=== PATIENT | male | born 1970 | race Caucasian/White ===

== ENCOUNTER 2016-09-23 21:39 | Emergency (ER) | payer OTHER ==
[2016-09-23 21:46] VITALS: BP 123/71; PULSE 89; TEMP 98; BMI 20.3
--- NOTE | 2016-09-23 22:37 | PDOC ---
History of Present Illness - General History Source: Other ([facility] Records) Exam Limitations: Intoxication - History of Present Illness Initial Comments: 09/23/16 22:45 Patient is a 46 year old male with significant past medical history of who presents to the ED from [facility] to be medically cleared and sent back for s/p fall with injury to the right knee. As per [facility] note the patient presented for BHS and was complaining of right knee pain, swelling and tenderness and not being able to bend the knee. Patient is intoxicated and sleeping, therefore HPI is limited. <Fatuma Amor - Last Filed: 09/23/16 22:45> <Christal Parish - Last Filed: 09/24/16 00:44> - General Chief Complaint: Injury Stated Complaint: FALL Time Seen by Provider: 09/23/16 22:07 Past History <Fatuma Amor - Last Filed: 09/23/16 22:45> - Past Medical History Diabetes: Yes - Psycho/Social/Smoking Cessation Hx Suicidal Ideation: No Smoking History: Current every day smoker Have you smoked in the past 12 months: No Number of Cigarettes Smoked Daily: 10 Information on smoking cessation initiated: No Hx Alcohol Use: Yes Drug/Substance Use Hx: No <Christal Parish - Last Filed: 09/24/16 00:44> - Past Medical History Allergies/Adverse Reactions: Allergies Allergy/AdvReac Type Severity Reaction Status Date / Time Penicillins Allergy Verified 09/23/16 21:41 Home Medications: Ambulatory Orders Metformin HCl [Glucophage -] 500 mg PO DAILY 09/23/16 Review of Systems - Review of Systems Able to Perform ROS?: No Comments:: 09/23/16 22:45 Unable to obtain an ROS due to patient being intoxicated. <Fatuma Amor - Last Filed: 09/23/16 22:45> *Physical Exam - Vital Signs Last Vital Signs Temp Pulse Resp BP Pulse Ox 98.0 F 89 14 123/71 95 09/23/16 21:42 09/23/16 21:42 09/23/16 21:42 09/23/16 21:42 09/23/16 21:42 - Physical Exam Comments: 09/23/16 22:46 GENERAL: +Alcohol on breath, somnolent, disheveled, smells terrible. HEENT: Normocephalic, atraumatic. CARDIOVASCULAR: Normal S1, S2. Regular rate and rhythm. PULMONARY: Clear to auscultation bilaterally. ABDOMEN: Soft, non-distended, non-tender. EXTREMITIES: + RT knee swelling, patellar bolatemen SKIN: + subacute abrasion to rt knee healing, NEUROLOGICAL: Limited. <Fatuma Amor - Last Filed: 09/23/16 22:45> - Vital Signs Last Vital Signs Temp Pulse Resp BP Pulse Ox 98.0 F 89 14 123/71 95 09/23/16 21:42 09/23/16 21:42 09/23/16 21:42 09/23/16 21:42 09/23/16 21:42 <Christal Parish - Last Filed: 09/24/16 00:44> ED Treatment Course - LABORATORY CBC & Chemistry Diagram: 09/23/16 23:15 09/23/16 23:15 <Christal Parish - Last Filed: 09/24/16 00:44> Medical Decision Making - Medical Decision Making 09/24/16 00:35 36-year-old intoxicated male was sent over from [facility] to evaluate right knee. He states that he had just fallen on it. However, the abrasion appears to be healing. He does have a small effusion on x-ray. No dislocation. No fracture. No streaking. No evidence of sialitis. Patient is afebrile. White count is only 4 Alcohol levels 198 Patient discharged back to [facility] <Christal Parish - Last Filed: 09/24/16 00:44> *DC/Admit/Observation/Transfer - Attestations Scribe Attestion: 09/23/16 22:50 Documentation prepared by SADE Gonzalez, acting as medical claims assistant for Christal Parish MD. <Fatuma Amor - Last Filed: 09/23/16 22:45> <Christal Parish - Last Filed: 09/24/16 00:44> Diagnosis at time of Disposition: Alcohol intolerance, Swelling of right knee joint Abrasion of right knee Qualifiers: Encounter type: initial encounter Qualified Code(s): S80.211A - Abrasion, right knee, initial encounter - Discharge Dispostion Disposition: I.P. ALCOHOL/SUBS ABUSE REHAB Condition at time of disposition: Stable - Patient Instructions Printed Discharge Instructions: DI for Alcohol Abuse, DI for Knee Pain, DI for Knee Effusion
[2016-09-23 23:26] LABS: BASOPHIL 1.6 % (0-2.0); EOSINOPHIL 2.1 % (0-4.5); MCH 30.4 pg (25.7-33.7); MCHC 33.3 g/dl (32.0-35.9); MEAN CELL VOLUME 91.2 fl (80-96); NEUTROPHILS 55.3 % (42.8-82.8); PLATELET COUNT 242 K/MM3 (134-434); RDW 16.1 % (11.9-15.9); WHITE BLOOD COUNT 4.8 K/mm3 (4.0-10.0)
[2016-09-23 23:55] LABS: ALBUMIN 3.3 g/dl (3.4-5.0); ANION GAP 11 (8-16); BILIRUBIN,TOTAL 0.3 mg/dL (0.2-1.0); CALCIUM 7.9 mg/dL (8.5-10.1); CO2 28 mmol/L (21-32); CREATININE 0.8 mg/dL (0.7-1.3); GLUCOSE,RANDOM 107 mg/dL (74-106); SGOT/AST 23 U/L (15-37); SGPT/ALT 22 U/L (12-78); TOT PROT 6.4 g/dl (6.4-8.2)
[2016-09-23 23:57] LABS: ALK PHOS 66 U/L (45-117)
== END 2016-09-24 01:01 | disposition other institution (70) ==
LOC: JER 21:39
DX: M25.461 Effusion, right knee (principal); S80.211A Abrasion, right knee, initial encounter; F10.120 Alcohol abuse with intoxication, uncomplicated; Y90.6 Blood alcohol level of 120-199 mg/100 ml; W19.XXXA Unspecified fall, initial encounter; Y93.89 Activity, other specified; Y92.89 Other specified places as the place of occurrence of the external cause; Y99.9 Unspecified external cause status
CPT/HCPCS: 36415; 73564-TC-RT; 80053; 80307; 85025; 99281-25

== ENCOUNTER 2016-09-24 01:43 | Inpatient (IN) | payer OTHER ==
--- NOTE | 2016-09-24 02:00 | HP ---
CIWA Score - CIWA Score Nausea/Vomitin-Mild Nausea/No Vomiting Muscle Tremors: 5 Anxiety: 4-Mod. Anxious/Guarded Agitation: 4-Moderately Restless Paroxysmal Sweats: 2 Orientation: 1-Uncertain about Date Tacttile Disturbances: 0-None Auditory Disturbances: 0-None Visual Disturbances: 0-None Headache: 0-None Present CIWA-Ar Total Score: 17 Admission ROS BHS - HPI Chief Complaint: WITHDRAWAL SX'S Allergies/Adverse Reactions: Allergies Allergy/AdvReac Type Severity Reaction Status Date / Time Penicillins Allergy Verified 09/24/16 01:55 History of Present Illness: 46 Y.O. MALE WITH EXTENSIVE H/O ALCOHOLISM ADMITTED FOR DETOX. CLIENT PRESENTED YESTERDAY FOR ADMISSION BUT WAS SENT TO [facility] FOR MEDICAL CLEARANCE DUE TO R KNEE PAIN R/T A FALL EARLIER IN THE DAY. XRAY DONE NO FX, R KNEE EFFUSION NOTED LEG BRACE PLACE, MEDICALLY CLEARED AND RETURNS NOW FOR ADMISSION. REPORTS LONGEST SOBRIETY WAS 6 YEARS AGO. DENIES ANY RECENT DETOX TXMENT. Exam Limitations: Physical Impairment (R KNEE PAIN.) - Ebola screening Have you traveled outside of the country in the last 21 days: No Have you had contact with anyone from an Ebola affected area: No Have you been sick,other than usual withdrawal symptoms: No Do you have a fever: No - Review of Systems Constitutional: Chills, Loss of Appetite, Malaise, Night Sweats EENT: reports: No Symptoms Reported Respiratory: reports: No Symptoms reported Cardiac: reports: No Symptoms Reported GI: reports: Poor Appetite, Poor Fluid Intake : reports: No Symptoms Reported Musculoskeletal: reports: Joint Pain (R KNEE) Integumentary: reports: Other (R KNEE ABRASION) Neuro: reports: Tremors (R/T ALCOHOL) Endocrine: reports: Other (H/O DM) Psychiatric: reports: No Sypmtoms Reported Other Systems: Reviewed and Negative Patient History - Patient Medical History Hx Anemia: No Hx Asthma: No Hx Chronic Obstructive Pulmonary Disease (COPD): No Hx Cancer: No Hx Cardiac Disorders: No Hx Congestive Heart Failure: No Hx Hypertension: No Hx Hypercholesterolemia: No Hx Pacemaker: No HX Cerebrovascular Accident: No Hx Seizures: No Hx Dementia: No Hx Diabetes: Yes (ON METFORMIN) Hx Gastrointestinal Disorders: No Hx Liver Disease: No Hx Genitourinary Disorders: No Hx Sexually Transmitted Disorders: No Hx Renal Disease (ESRD): No Hx Thyroid Disease: No Hx Human Immunodeficiency Virus (HIV): No Hx Hepatitis C: Yes (TX'ED) Hx Suicide Attempt: No Hx Bipolar Disorder: No Hx Schizophrenia: No Other Medical History: DENIES - Patient Surgical History Past Surgical History: Yes Other Surgical History: ABD HERNIA REPAIR Anesthesia Reaction: No - PPD History Previous Implant?: Yes Documented Results: Negative w/o proof Implanted On Prior R Admission?: No PPD to be Administered?: Yes - Smoking Cessation Smoking history: Current every day smoker Have you smoked in the past 12 months: No Aproximately how many cigarettes per day: 2 Hx Chewing Tobacco Use: No Initiated information on smoking cessation: Yes 'Breaking Loose' booklet given: 09/24/16 - Substance & Tx. History Hx Alcohol Use: Yes Hx Substance Use: No Substance Use Type: Alcohol Hx Substance Use Treatment: Yes ([facility]) - Substances Abused VODKA Route: Oral Frequency: Daily Amount used: 2PINTS/ 6-PACK OF BEER Age of first use: 16 Date of Last Use: 09/23/16 Family Disease History - Family Disease History Family Disease History: Other: Father (SUICIDE/ ETOH DEP) Admission Physical Exam [facility] - Physical General Appearance: Yes: Disheveled, Intoxicated, Tremorous, Other (MALODUROUS) HEENTM: Yes: EOMI, Hearing grossly Normal, Normocephalic, TYLER, Pharynx Normal Respiratory: Yes: Chest Non-Tender, Lungs Clear, Normal Breath Sounds, No Respiratory Distress, No Accessory Muscle Use Neck: Yes: No masses,lesions,Nodules, Supple, Trachea in good position Breast: Yes: Breast Exam Deferred Cardiology: Yes: Regular Rhythm, Regular Rate, S1, S2 Abdominal: Yes: Normal Bowel Sounds, Non Tender, Flat, Soft Genitourinary: Yes: Within Normal Limits Back: Yes: Normal Inspection Musculoskeletal: Yes: Joint Stiffness, Other (LROM TO R KNEE 2/2 PAIN) Extremities: Yes: Normal Capillary Refill, Normal Range of Motion (EXCEPT R KNEE ), Non-Tender, Tremors Neurological: Yes: Alert, Motor Strength 5/5 Integumentary: Yes: Other (R KNEE ABRASION/ SWOLLEN RED AND WARM TO TOUCH, WITH BROWNISH TISSUE AROUN BORDERS.) Lymphatic: Yes: Within Normal Limits - Diagnostic (1) Diabetes Current Visit: Yes Status: Acute (2) Knee effusion, right Current Visit: Yes Status: Acute (3) Alcohol dependence with uncomplicated withdrawal Current Visit: Yes Status: Acute (4) Nicotine dependence Current Visit: Yes Status: Acute Cleared for Admission [facility] - Detox or Rehab [facility] Level of Care: Medically Managed Detox Regimen/Protocol: Librium BHS Breath Alcohol Content Breath Alcohol Content: 0.102 Vital Signs - Vital Signs Vital Signs Refused: No Temperature: 97.3 F Temperature Source: Oral Pulse Rate: 78 Respiratory Rate: 20 Blood Pressure: 115/69 BP Location: Left Arm Blood Pressure Position: Sitting - Height Height: 5 ft 8 in - Weight Weight: 67.132 kg Weight Measurement Method: Standing Scale Body Mass Index (BMI): 22.5 - Bowel Function Bowel Movement: No Urine Drug Screen - Test Device Lot Number: [id number] Expiration Date: 04/30/18 - Control Is Test Valid: Yes - Results Drug Screen Negative: Yes
[2016-09-24 02:06] VITALS: BMI 22.5
[2016-09-24] MEDS ORDERED: LOPERAMIDE HCL 2 MG CAPSULE PO PRN (02:13)
[2016-09-24] MEDS ORDERED: NICOTINE POLACRILEX 2 MG GUM BC PRN (02:13)
[2016-09-24] MEDS ORDERED: IBUPROFEN 400 MG TABLET (FP) PO PRN (02:13)
[2016-09-24] MEDS ORDERED: ACETAMINOPHEN 325 MG TABLET (FP) PO PRN (02:13)
[2016-09-24] MEDS ORDERED: MAGNESIUM HYDROX 2400MG/30ML ORAL SUSPENSION 30 ML CUP PO PRN (02:13)
[2016-09-24] MEDS ORDERED: chlordiazePOXIDE HCL 25 MG CAPSULE PO PRN (02:13)
[2016-09-24] MEDS ORDERED: diphenhydrAMINE HCL 50 MG CAPSULE PO PRN (02:13)
[2016-09-24] MEDS ORDERED: chlordiazePOXIDE HCL 25 MG CAPSULE PO ONE (02:13)
[2016-09-24] MEDS ORDERED: hydrOXYzine PAMOATE 50 MG CAPSULE (FP) PO PRN (02:13)
[2016-09-24] MEDS ORDERED: guaiFENesin/D-METHORPHAN HB 10 ML UNIT-DOSE CUPS PO PRN (02:13)
[2016-09-24] MEDS ORDERED: P-EPHED 60MG/TRIPROLIDI 2.5MG TABLET PO PRN (02:13)
[2016-09-24] MEDS ORDERED: MENTHOL/PHENOL 1 EACH UD MM PRN (02:13)
[2016-09-24] MEDS ORDERED: MAG HYDROX/AL HYDROX/SIMETH 30 ML UNIT-DOSE CUP PO PRN (02:13)
[2016-09-24] MEDS ORDERED: MAGNESIUM CITRATE 300 ML BOTTLE PO PRN (02:13)
--- NOTE | 2016-09-24 02:28 | PN ---
BHS Progress Note Note: PT STARTED ON LEVOFLOXACIN PO FOR R KNEE ABRASION WITH INFLAMMATION/ POSSIBLE INFECTION
[2016-09-24] MEDS: chlordiazePOXIDE HCL 25 MG CAPSULE PO SCH ×4 (06:08→22:30)
[2016-09-24] MEDS: INSULIN SLIDING SCALE (NOVOLOG) 1 VIAL SQ SCH ×2 (06:10→17:14)
[2016-09-24] MEDS ORDERED: LEVOFLOXACIN 500 MG TABLET (FP) ONE (06:33)
[2016-09-24] MEDS ORDERED: LEVOFLOXACIN 250 MG TABLET (FP) ONE (06:34)
[2016-09-24] MEDS: LEVOFLOXACIN 500 MG, LEVOFLOXACIN 250 MG PO SCH (06:53)
[2016-09-24] MEDS: LEVOFLOXACIN 750 MG TABLET PO SCH (06:53)
[2016-09-24] MEDS: metFORMIN HCL 500 MG TABLET (FP) PO SCH (07:48)
[2016-09-24] MEDS ORDERED: BACITRACIN 30 GM TUBE TOPICAL OINTMENT TP SCH (10:00)
--- NOTE | 2016-09-24 10:02 | PN ---
[facility] CIWA - CIWA Score Nausea/Vomitin-No Nausea/No Vomiting Muscle Tremors: 4-Moderate,w/Arms Extend Anxiety: 4-Mod. Anxious/Guarded Agitation: 4-Moderately Restless Paroxysmal Sweats: 1-Minimal Palms Moist Orientation: 0-Oriented Tacttile Disturbances: 3-Moderate Itch/Numb/Burn Auditory Disturbances: 0-None Visual Disturbances: 0-None Headache: 0-None Present CIWA-Ar Total Score: 16 BHS Progress Note (SOAP) Subjective: ANXIETY,SWEATS,CHILLS, INTERMITTENT SLEEP. Objective: 09/24/16 10:04 Laboratory Last Values WBC 5.5 K/mm3 (4.0-10.0) 09/24/16 07:00 RBC 4.41 M/mm3 (4.00-5.60) 09/24/16 07:00 Hgb 13.7 GM/dL (11.7-16.9) 09/24/16 07:00 Hct 40.6 % (35.4-49) 09/24/16 07:00 MCV 92.0 fl (80-96) 09/24/16 07:00 MCHC 33.8 g/dl (32.0-35.9) 09/24/16 07:00 RDW 15.7 % (11.9-15.9) 09/24/16 07:00 Plt Count 190 K/MM3 (134-434) D 09/24/16 07:00 MPV 9.3 fl (7.5-11.1) D 09/24/16 07:00 POC Glucometer 85 UNITS (()) 09/24/16 06:07 Vital Signs Temperature 97.5 F L 09/24/16 09:43 Pulse Rate 95 H 09/24/16 09:43 Respiratory Rate 20 09/24/16 09:43 Blood Pressure 124/81 09/24/16 09:43 O2 Sat by Pulse Oximetry (%) Assessment: 09/24/16 10:04 WITHDRAWAL SX Plan: CONTINUE DETOX
[2016-09-24 10:03] LABS: MCHC 33.8 g/dl (32.0-35.9); MEAN PLT VOLUME 9.3 fl (7.5-11.1); PLATELET COUNT 190 K/MM3 (134-434); RDW 15.7 % (11.9-15.9); WHITE BLOOD COUNT 5.5 K/mm3 (4.0-10.0)
[2016-09-24] MEDS: PRENATAL VITAMINS W/ FOLIC ACID TABLET (FP) PO SCH (10:35)
[2016-09-24] MEDS: NICOTINE 14 MG/24 HOURS TOPICAL PATCH TD SCH (10:36)
[2016-09-24] MEDS: BACITRACIN 30 GM TUBE TOPICAL OINTMENT TP SCH (10:37)
[2016-09-24 10:50] LABS: ALBUMIN 3.1 g/dl (3.4-5.0); ALK PHOS 66 U/L (45-117); ANION GAP 9 (8-16); BILIRUBIN,TOTAL 0.6 mg/dL (0.2-1.0); CALCIUM 7.4 mg/dL (8.5-10.1); CO2 27 mmol/L (21-32); CREATININE 0.6 mg/dL (0.7-1.3); GLUCOSE,RANDOM 83 mg/dL (74-106); SGOT/AST 21 U/L (15-37); SGPT/ALT 21 U/L (12-78); TOT PROT 6.1 g/dl (6.4-8.2)
--- NOTE | 2016-09-24 11:00 | EKG ---
Test Reason : Blood Pressure : / mmHG Vent. Rate : 082 BPM Atrial Rate : 082 BPM P-R Int : 132 ms QRS Dur : 090 ms QT Int : 386 ms P-R-T Axes : 078 083 073 degrees QTc Int : 450 ms NORMAL SINUS RHYTHM MODERATE VOLTAGE CRITERIA FOR LVH, MAY BE NORMAL VARIANT BORDERLINE ECG NO PREVIOUS ECGS AVAILABLE Confirmed by DANYEL BEAUCHAMP MD ([id number]) on 09/24/2016 11:00:23 AM Referred By: Confirmed By:DANYEL BEAUCHAMP MD
--- NOTE | 2016-09-24 14:37 | CONSULT ---
[facility] Psychiatric Consult - Data Date of interview: 09/24/16 Admission source: [facility] Identifying data: First admission to [facility] for this 46 y/o male seeking detox treatment on for alcohol dependence.Patient is single without children,homeless,unemployed and supported on food stamps. Substance Abuse History: - Smoking Cessation. Smoking history: Current every day smoker. Have you smoked in the past 12 months: No. Aproximately how many cigarettes per day: 2. Hx Chewing Tobacco Use: No. Initiated information on smoking cessation: Yes. 'Breaking Loose' booklet given: 09/24/16. - Substance & Tx. History. Hx Alcohol Use: Yes. Hx Substance Use: No. Substance Use Type : Alcohol. Hx Substance Use Treatment: Yes ([facility]). - Substances Abused. VODKA. Route: Oral. Frequency: Daily. Amount used: 2PINTS/ 6-PACK OF BEER. Age of first use: 16. Date of Last Use: 09/23/16. Confirmed by patient. Medical History: Remarkable for hepatitis C,diabetes mellitus and abdominal herniorraphy.Noted current right leg brace and report of knee effusion (treated at [facility] prior to this admission to [facility]).It appears that the patient had an accidental [place] (self-report). Psychiatric History: Patient denies. Physical/Sexual Abuse/Trauma History: Patient denies. Additional Comment: Drug Screen Negative: Yes.Noted. Mental Status Exam - Mental Status Exam Alert and Oriented to: Time, Place, Person Cognitive Function: Good Patient Appearance: Disheveled Mood: Withdrawn, Anxious, Apprehensive Affect: Constricted Patient Behavior: Fatigued, Appropriate, Cooperative Speech Pattern: Clear Voice Loudness: Normal Thought Process: Goal Oriented Thought Disorder: Not Present Hallucinations: Denies Suicidal Ideation: Denies Homicidal Ideation: Denies Insight/Judgement: Poor Sleep: Fair Appetite: Good Muscle strength/Tone: Normal Gait/Station: Normal Psychiatric Findings - Problem List (Reva 1, 2,3) (1) Alcohol dependence with uncomplicated withdrawal Current Visit: Yes Status: Acute (2) Nicotine dependence Current Visit: Yes Status: Acute (3) Knee effusion, right Current Visit: Yes Status: Acute (4) Swelling of right knee joint Current Visit: No Status: Acute (5) Diabetes Current Visit: Yes Status: Chronic - Initial Treatment Plan Initial Treatment Plan: Psychoeducation.Detoxification.Observation.Fall precautions.
[2016-09-24] MEDS ORDERED: THIAMINE HCL 100 MG TABLET (FP) PO SCH (22:00)
[2016-09-25] MEDS ORDERED: LEVOFLOXACIN 500 MG TABLET (FP) ONE (05:33)
[2016-09-25] MEDS ORDERED: LEVOFLOXACIN 250 MG TABLET (FP) ONE (05:33)
[2016-09-25] MEDS: metFORMIN HCL 500 MG TABLET (FP) PO SCH (06:23)
[2016-09-25] MEDS: LEVOFLOXACIN 500 MG, LEVOFLOXACIN 250 MG PO SCH (06:23)
[2016-09-25] MEDS: chlordiazePOXIDE HCL 25 MG CAPSULE PO SCH ×2 (06:23→10:44)
[2016-09-25] MEDS: LEVOFLOXACIN 750 MG TABLET PO SCH (07:24)
[2016-09-25] MEDS: INSULIN SLIDING SCALE (NOVOLOG) 1 VIAL SQ SCH (07:41)
--- NOTE | 2016-09-25 08:57 | PN ---
[facility] CIWA - CIWA Score Nausea/Vomitin-No Nausea/No Vomiting Muscle Tremors: 4-Moderate,w/Arms Extend Anxiety: 4-Mod. Anxious/Guarded Agitation: 4-Moderately Restless Paroxysmal Sweats: 1-Minimal Palms Moist Orientation: 0-Oriented Tacttile Disturbances: 3-Moderate Itch/Numb/Burn Auditory Disturbances: 0-None Visual Disturbances: 0-None Headache: 0-None Present CIWA-Ar Total Score: 16 BHS Progress Note (SOAP) Subjective: ANXIETY,TREMORS,SWEATS. Objective: 09/25/16 08:57 Vital Signs Temperature 97.0 F L 09/25/16 06:48 Pulse Rate 78 09/25/16 06:48 Respiratory Rate 18 09/25/16 06:48 Blood Pressure 124/88 09/25/16 06:48 O2 Sat by Pulse Oximetry (%) Laboratory Last Values WBC 5.5 K/mm3 (4.0-10.0) 09/24/16 07:00 RBC 4.41 M/mm3 (4.00-5.60) 09/24/16 07:00 Hgb 13.7 GM/dL (11.7-16.9) 09/24/16 07:00 Hct 40.6 % (35.4-49) 09/24/16 07:00 MCV 92.0 fl (80-96) 09/24/16 07:00 MCHC 33.8 g/dl (32.0-35.9) 09/24/16 07:00 RDW 15.7 % (11.9-15.9) 09/24/16 07:00 Plt Count 190 K/MM3 (134-434) D 09/24/16 07:00 MPV 9.3 fl (7.5-11.1) D 09/24/16 07:00 Sodium 139 mmol/L (136-145) 09/24/16 07:00 Potassium 4.1 mmol/L (3.5-5.1) 09/24/16 07:00 Chloride 103 mmol/L (98-107) 09/24/16 07:00 Carbon Dioxide 27 mmol/L (21-32) 09/24/16 07:00 Anion Gap 9 (8-16) 09/24/16 07:00 BUN 8 mg/dL (7-18) 09/24/16 07:00 Creatinine 0.6 mg/dL (0.7-1.3) L D 09/24/16 07:00 Creat Clearance w eGFR > 60 (>60) 09/24/16 07:00 POC Glucometer 99 UNITS (()) 09/25/16 06:26 Random Glucose 83 mg/dL (74-106) D 09/24/16 07:00 Calcium 7.4 mg/dL (8.5-10.1) L 09/24/16 07:00 Total Bilirubin 0.6 mg/dL (0.2-1.0) D 09/24/16 07:00 AST 21 U/L (15-37) 09/24/16 07:00 ALT 21 U/L (12-78) 09/24/16 07:00 Alkaline Phosphatase 66 U/L (45-117) 09/24/16 07:00 Total Protein 6.1 g/dl (6.4-8.2) L 09/24/16 07:00 Albumin 3.1 g/dl (3.4-5.0) L 09/24/16 07:00 RPR Titer Nonreactive (NONREACTIVE) 09/24/16 07:00 Assessment: 09/25/16 08:57 WITHDRAWAL SX Plan: CONTINUE DETOX
[2016-09-25] MEDS ORDERED: IBUPROFEN 600 MG TABLET (FP) PO PRN (09:20)
[2016-09-25] MEDS: PRENATAL VITAMINS W/ FOLIC ACID TABLET (FP) PO SCH (10:44)
[2016-09-25] MEDS: NICOTINE 14 MG/24 HOURS TOPICAL PATCH TD SCH (10:44)
[2016-09-25] MEDS: BACITRACIN 30 GM TUBE TOPICAL OINTMENT TP SCH (10:45)
[2016-09-25 14:26] VITALS: BP 107/75; PULSE 75; TEMP 96.4
--- NOTE | 2016-09-25 15:15 | DS ---
[facility] Detox Discharge Summary Admission Date: 09/24/16 Discharge Date: 09/25/16 - History Present History: Alcohol Dependence Pertinent Past History: TYPE II DM - Physical Exam Results Vital Signs: Vital Signs Temperature 96.4 F L 09/25/16 14:25 Pulse Rate 75 09/25/16 14:25 Respiratory Rate 18 09/25/16 14:25 Blood Pressure 107/75 09/25/16 14:25 O2 Sat by Pulse Oximetry (%) Pertinent Admission Physical Exam Findings: WITHDRAWAL SX. Laboratory Last Values WBC 5.5 K/mm3 (4.0-10.0) 09/24/16 07:00 RBC 4.41 M/mm3 (4.00-5.60) 09/24/16 07:00 Hgb 13.7 GM/dL (11.7-16.9) 09/24/16 07:00 Hct 40.6 % (35.4-49) 09/24/16 07:00 MCV 92.0 fl (80-96) 09/24/16 07:00 MCHC 33.8 g/dl (32.0-35.9) 09/24/16 07:00 RDW 15.7 % (11.9-15.9) 09/24/16 07:00 Plt Count 190 K/MM3 (134-434) D 09/24/16 07:00 MPV 9.3 fl (7.5-11.1) D 09/24/16 07:00 Sodium 139 mmol/L (136-145) 09/24/16 07:00 Potassium 4.1 mmol/L (3.5-5.1) 09/24/16 07:00 Chloride 103 mmol/L (98-107) 09/24/16 07:00 Carbon Dioxide 27 mmol/L (21-32) 09/24/16 07:00 Anion Gap 9 (8-16) 09/24/16 07:00 BUN 8 mg/dL (7-18) 09/24/16 07:00 Creatinine 0.6 mg/dL (0.7-1.3) L D 09/24/16 07:00 Creat Clearance w eGFR > 60 (>60) 09/24/16 07:00 POC Glucometer 99 UNITS (()) 09/25/16 06:26 Random Glucose 83 mg/dL (74-106) D 09/24/16 07:00 Calcium 7.4 mg/dL (8.5-10.1) L 09/24/16 07:00 Total Bilirubin 0.6 mg/dL (0.2-1.0) D 09/24/16 07:00 AST 21 U/L (15-37) 09/24/16 07:00 ALT 21 U/L (12-78) 09/24/16 07:00 Alkaline Phosphatase 66 U/L (45-117) 09/24/16 07:00 Total Protein 6.1 g/dl (6.4-8.2) L 09/24/16 07:00 Albumin 3.1 g/dl (3.4-5.0) L 09/24/16 07:00 RPR Titer Nonreactive (NONREACTIVE) 09/24/16 07:00 LABS NOTED - Medication Discharge Medications: Ambulatory Orders Metformin HCl [Glucophage -] 500 mg PO DAILY 09/23/16 - Diagnosis (1) Alcohol dependence with uncomplicated withdrawal Current Visit: Yes Status: Acute (2) Knee effusion, right Current Visit: Yes Status: Acute (3) Nicotine dependence Current Visit: Yes Status: Acute Qualifiers: Nicotine product type: cigarettes Substance use status: uncomplicated Qualified Code(s): F17.210 - Nicotine dependence, cigarettes, uncomplicated (4) Abrasion, right knee, initial encounter Current Visit: Yes Status: Acute Qualifiers: Encounter type: initial encounter Qualified Code(s): S80.211A - Abrasion, right knee, initial encounter (5) Type II diabetes mellitus Current Visit: Yes Status: Acute Qualifiers: Diabetes mellitus complication status: without complication Diabetes mellitus vermin exterminator insulin use: without half-way use Qualified Code(s): E11.9 - Type 2 diabetes mellitus without complications - AMA Did Patient Leave Against Medical Advice: Yes
[2016-09-26] MEDS ORDERED: chlordiazePOXIDE 5 MG CAPSULE PO SCH (05:00)
[2016-09-27] MEDS ORDERED: chlordiazePOXIDE HCL 10 MG CAPSULE PO SCH (05:00)
== END 2016-09-25 14:49 | disposition left against medical advice (07) | DRG 770 ==
LOC: YASAS 01:43 → Y3N 01:47
PROVIDERS: ADMIT Internal Medicine; ATTEND Internal Medicine
PROC: HZ2ZZZZ Detoxification Services for Substance Abuse Treatment (ICD-10-PCS; principal; 2016-09-24)
DX: F10.230 Alcohol dependence with withdrawal, uncomplicated (principal); F17.210 Nicotine dependence, cigarettes, uncomplicated; E11.9 Type 2 diabetes mellitus without complications; S80.211D Abrasion, right knee, subsequent encounter; M25.461 Effusion, right knee; W19.XXXD Unspecified fall, subsequent encounter
CPT/HCPCS: 36415; 80053; 85027; 86593; 93005; 93010

== ENCOUNTER 2016-10-30 16:31 | Inpatient (IN) | payer OTHER ==
--- NOTE | 2016-10-30 19:30 | HP ---
CIWA Score - CIWA Score Nausea/Vomitin-No Nausea/No Vomiting Muscle Tremors: 5 Anxiety: 4-Mod. Anxious/Guarded Agitation: 4-Moderately Restless Paroxysmal Sweats: 1-Minimal Palms Moist Orientation: 3-Disoriented Date>2 days Tacttile Disturbances: 0-None Auditory Disturbances: 0-None Visual Disturbances: 0-None Headache: 0-None Present CIWA-Ar Total Score: 17 Admission ROS [facility] - HPI Chief Complaint: WITHDRAWAL SX Allergies/Adverse Reactions: Allergies Allergy/AdvReac Type Severity Reaction Status Date / Time Penicillins Allergy Verified 10/30/16 18:41 History of Present Illness: 46 YEARS OLD MALE WITH LONG HISTORY OF ALCOHOL DEPENDENCE, HAS HYPERTENSION DIABETES II HEPATITIS C AND ANXIETY IS ADMITTED TO DETOX Exam Limitations: No Limitations - Ebola screening Have you traveled outside of the country in the last 21 days: No Have you had contact with anyone from an Ebola affected area: No Have you been sick,other than usual withdrawal symptoms: No Do you have a fever: No - Review of Systems Constitutional: Chills, Loss of Appetite, Changes in sleep, Unexplained wgt Loss EENT: reports: No Symptoms Reported Respiratory: reports: No Symptoms reported Cardiac: reports: No Symptoms Reported GI: reports: Nausea, Poor Appetite, Poor Fluid Intake, Abdominal cramping : reports: No Symptoms Reported Musculoskeletal: reports: No Symptoms Reported Integumentary: reports: No Symptoms Reported Neuro: reports: Tremors Endocrine: reports: No Symptoms Reported Hematology: reports: No Symptoms Reported Psychiatric: reports: Judgement Intact, Depressed Other Systems: Reviewed and Negative Patient History - Patient Medical History Hx Anemia: No Hx Asthma: No Hx Chronic Obstructive Pulmonary Disease (COPD): No Hx Cancer: No Hx Cardiac Disorders: No Hx Congestive Heart Failure: No Hx Hypertension: Yes Hx Hypercholesterolemia: No Hx Pacemaker: No HX Cerebrovascular Accident: No Hx Seizures: No Hx Dementia: No Hx Diabetes: Yes Hx Gastrointestinal Disorders: No Hx Liver Disease: No Hx Genitourinary Disorders: No Hx Sexually Transmitted Disorders: No Hx Renal Disease (ESRD): No Hx Thyroid Disease: No Hx Human Immunodeficiency Virus (HIV): No Hx Hepatitis C: Yes (TX'ED) Hx Depression: Yes Hx Suicide Attempt: No Hx Bipolar Disorder: No Hx Schizophrenia: No - Patient Surgical History Past Surgical History: Yes Hx Neurologic Surgery: No Hx Cataract Extraction: Yes (2010) Hx Cardiac Surgery: No Hx Lung Surgery: No Hx Breast Surgery: No Hx Breast Biopsy: No Hx Abdominal Surgery: No Hx Appendectomy: No Hx Cholecystectomy: No Hx Genitourinary Surgery: No Hx Orthopedic Surgery: No Other Surgical History: ABD HERNIA REPAIR Anesthesia Reaction: No - PPD History Previous Implant?: Yes Documented Results: Negative w/o proof Implanted On Prior [facility] Admission?: Yes Date: 09/27/16 PPD to be Administered?: Yes - Smoking Cessation Smoking history: Current some day smoker Have you smoked in the past 12 months: Yes Aproximately how many cigarettes per day: 2 Cigars Per Day: 0 Hx Chewing Tobacco Use: No Initiated information on smoking cessation: Yes 'Breaking Loose' booklet given: 10/30/16 - Substance & Tx. History Hx Alcohol Use: Yes Hx Substance Use: No Substance Use Type: Alcohol Hx Substance Use Treatment: Yes - Substances Abused Alcohol Route: Oral Frequency: Daily Amount used: 4 pints Vodka Age of first use: 21 Date of Last Use: 10/30/16 Family Disease History - Family Disease History Family Disease History: Other: Father (SUICIDE/ ETOH DEP) Admission Physical Exam S - Vital Signs Vital Signs: Vital Signs - 24 hr 10/30/16 18:02 Pulse Rate 99 H Respiratory 20 Rate Blood Pressure 150/69 - Physical General Appearance: Yes: Appropriately Dressed, Moderate Distress, Alcohol on Breath, Thin, Tremorous, Irritable, Sweating, Anxious HEENTM: Yes: Hearing grossly Normal, Normal ENT Inspection, Normocephalic, Normal Voice Respiratory: Yes: Chest Non-Tender, Lungs Clear, Normal Breath Sounds, No Respiratory Distress, No Accessory Muscle Use Neck: Yes: Supple, Trachea in good position Breast: Yes: Breasts Symetrical Cardiology: Yes: Regular Rhythm, S1, S2, Tachycardia Abdominal: Yes: Non Tender, Soft Genitourinary: Yes: Within Normal Limits Back: Yes: Normal Inspection Musculoskeletal: Yes: Gait Steady, Muscle Pain (right leg), Muscle weakness ( right leg) Extremities: Yes: Non-Tender, Tremors Neurological: Yes: Within Normal Limits, Alert, Normal Response, Depressed Affect Integumentary: Yes: Warm, Moist Lymphatic: Yes: Within Normal Limits - Diagnostic (1) Alcohol dependence with uncomplicated withdrawal Current Visit: Yes Status: Acute (2) Type II diabetes mellitus Current Visit: Yes Status: Acute Qualifiers: Diabetes mellitus complication status: without complication Diabetes mellitus ad terminal makeup operator insulin use: without ad terminal makeup operator use Qualified Code(s): E11.9 - Type 2 diabetes mellitus without complications (3) Hypertension Current Visit: Yes Status: Acute Qualifiers: Hypertension type: essential hypertension Qualified Code(s): I10 - Essential (primary) hypertension (4) Hepatitis C antibody test positive Current Visit: Yes Status: Chronic (5) Weight loss Current Visit: Yes Status: Acute (6) Weakness of right leg Current Visit: Yes Status: Chronic Comment: cane Cleared for Admission S - Detox or Rehab [facility] Level of Care: Medically Managed Detox Regimen/Protocol: Librium [facility] Breath Alcohol Content Breath Alcohol Content: 0.232 Vital Signs - Vital Signs Vital Signs Refused: No Temperature: 98 F Temperature Source: Oral Pulse Rate: 99 Respiratory Rate: 20 Blood Pressure: 150/69 BP Location: Left Arm Blood Pressure Position: Sitting - Height Height: 5 ft 8 in - Weight Weight: 148 lb Weight Measurement Method: Standing Scale Body Mass Index (BMI): 22.5 - Bowel Function Bowel Movement: Yes Urine Drug Screen - Control Is Test Valid: Yes - Results Drug Screen Negative: No Urine Drug Screen Results: BZO-Benzodiazepines
[2016-10-30 19:41] VITALS: BMI 22.5
[2016-10-30] MEDS ORDERED: MAGNESIUM HYDROX 2400MG/30ML ORAL SUSPENSION 30 ML CUP PO PRN (20:12)
[2016-10-30] MEDS ORDERED: ACETAMINOPHEN 325 MG TABLET (FP) PO PRN (20:12)
[2016-10-30] MEDS ORDERED: IBUPROFEN 400 MG TABLET (FP) PO PRN (20:12)
[2016-10-30] MEDS ORDERED: MAG HYDROX/AL HYDROX/SIMETH 30 ML UNIT-DOSE CUP PO PRN (20:12)
[2016-10-30] MEDS ORDERED: hydrOXYzine PAMOATE 50 MG CAPSULE (FP) PO PRN (20:12)
[2016-10-30] MEDS ORDERED: LOPERAMIDE HCL 2 MG CAPSULE PO PRN (20:12)
[2016-10-30] MEDS ORDERED: MAGNESIUM CITRATE 300 ML BOTTLE PO PRN (20:12)
[2016-10-30] MEDS ORDERED: chlordiazePOXIDE HCL 25 MG CAPSULE PO ONE (20:12)
[2016-10-30] MEDS ORDERED: P-EPHED 60MG/TRIPROLIDI 2.5MG TABLET PO PRN (20:12)
[2016-10-30] MEDS ORDERED: guaiFENesin/D-METHORPHAN HB 10 ML UNIT-DOSE CUPS PO PRN (20:12)
[2016-10-30] MEDS ORDERED: MENTHOL/PHENOL 1 EACH UD MM PRN (20:12)
[2016-10-30] MEDS ORDERED: cloNIDine HCL 0.1 MG TABLET PO PRN (20:22)
[2016-10-30] MEDS: amLODIPine BESYLATE 10 MG TABLET (FP) PO SCH (21:25)
[2016-10-30] MEDS: THIAMINE HCL 100 MG TABLET (FP) PO SCH (21:25)
[2016-10-30] MEDS: chlordiazePOXIDE HCL 25 MG CAPSULE PO SCH (22:45)
[2016-10-30 22:52] LABS: URINE APPEARANCE CLEAR; URINE BILIRUBIN NEGATIVE (NEGATIVE); URINE COLOR YELLOW; URINE GLUCOSE (UA) NEGATIVE (NEGATIVE); URINE KETONE NEGATIVE (NEGATIVE); URINE LEUK ESTERASE NEGATIVE (NEGATIVE); URINE NITRITE NEGATIVE (NEGATIVE); URINE PROTEIN NEGATIVE (NEGATIVE); URINE UROBILINOGEN NEGATIVE E.U./dl (0.2-1.0)
[2016-10-30 22:53] LABS: URINE BLOOD 1+ (NEGATIVE)
[2016-10-30 22:55] LABS: URINE HYALINE CAST 1 /lpf; URINE MUCUS MANY; URINE WBC 3 /hpf (3-5)
[2016-10-31] MEDS: chlordiazePOXIDE HCL 25 MG CAPSULE PO SCH ×4 (06:14→22:43)
[2016-10-31] MEDS: metFORMIN HCL 500 MG TABLET (FP) PO SCH ×2 (07:41→17:20)
[2016-10-31] MEDS: chlordiazePOXIDE HCL 25 MG CAPSULE PO PRN ×2 (08:37→19:09)
--- NOTE | 2016-10-31 08:41 | CONSULT ---
[facility] Psychiatric Consult - Data Date of interview: 10/31/16 Admission source: [facility] Identifying data: This isn 46 years old chronic alcoholic male intoxicasted with Alcohol and Nicotine Substance Abuse History: - Smoking Cessation. Smoking history: Current some day smoker. Have you smoked in the past 12 months: Yes. Aproximately how many cigarettes per day: 2. Cigars Per Day: 0. Hx Chewing Tobacco Use: No. Initiated information on smoking cessation: Yes. 'Breaking Loose' booklet given : 10/30/16. - Substance & Tx. History. Hx Alcohol Use: Yes. Hx Substance Use : No. Substance Use Type: Alcohol. Hx Substance Use Treatment: Yes. - Substances Abused. Alcohol. Route: Oral. Frequency: Daily. Amount used: 4 pints Vodka. Age of first use: 21. Date of Last Use: 10/30/16 Medical History: HTN, DM-2, Weight loss, Right Knee injury Psychiatric History: Denies Physical/Sexual Abuse/Trauma History: Unknown Additional Comment: Observation. Detox Unit Care Protocol Mental Status Exam - Mental Status Exam Alert and Oriented to: Person Cognitive Function: Fair Patient Appearance: Unkempt Mood: Sad Affect: Flat Patient Behavior: Sedated Speech Pattern: Slurred Voice Loudness: Mildly Soft/Quiet, Moderately Soft/Quiet Thought Process: Circumstantial Thought Disorder: Being Controlled Hallucinations: Denies Suicidal Ideation: Denies Homicidal Ideation: Denies Insight/Judgement: Fair Sleep: Difficulty falling asleep Appetite: Weight loss Muscle strength/Tone: Moderate Hypotonicity Gait/Station: Shuffling Additional Comments: Observation. Detox Unit Care Protocol Psychiatric Findings - Problem List ([place] 1, 2,3) (1) Alcohol dependence with uncomplicated withdrawal Current Visit: Yes Status: Acute (2) Nicotine dependence Current Visit: No Status: Acute Qualifiers: Nicotine product type: cigarettes Substance use status: uncomplicated Qualified Code(s): F17.210 - Nicotine dependence, cigarettes, uncomplicated (3) Drug-induced mood disorder Current Visit: Yes Status: Acute - Initial Treatment Plan Initial Treatment Plan: Observation. Detox Unit Care Protocol. Check Ammonia level recomended
[2016-10-31] MEDS ORDERED: amLODIPine BESYLATE 10 MG TABLET (FP) PO SCH (10:00)
[2016-10-31 10:14] LABS: MCH 30.8 pg (25.7-33.7); MCHC 33.5 g/dl (32.0-35.9); MEAN CELL VOLUME 92.1 fl (80-96); MEAN PLT VOLUME 9.3 fl (7.5-11.1); PLATELET COUNT 124 K/MM3 (134-434); RDW 14.3 % (11.9-15.9); WHITE BLOOD COUNT 4.2 K/mm3 (4.0-10.0)
[2016-10-31 10:40] LABS: ALBUMIN 3.6 g/dl (3.4-5.0); ALK PHOS 83 U/L (45-117); ANION GAP 11 (8-16); BILIRUBIN,TOTAL 0.9 mg/dL (0.2-1.0); CO2 28 mmol/L (21-32); CREATININE 0.6 mg/dL (0.7-1.3); GLUCOSE,RANDOM 106 mg/dL (74-106); SGOT/AST 86 U/L (15-37); SGPT/ALT 48 U/L (12-78); TOT PROT 6.9 g/dl (6.4-8.2)
--- NOTE | 2016-10-31 11:11 | PN ---
[facility] CIWA - CIWA Score Nausea/Vomitin Muscle Tremors: 5 Anxiety: 3 Agitation: 3 Paroxysmal Sweats: 3 Orientation: 0-Oriented Tacttile Disturbances: 2-Mild Itch/Numbness/Burn Auditory Disturbances: 0-None Visual Disturbances: 0-None Headache: 0-None Present CIWA-Ar Total Score: 19 [facility] Progress Note (SOAP) Subjective: interrupted sleep, sweats, shakes , Objective: 10/31/16 11:09 Vital Signs Temperature 98.8 F 10/31/16 09:46 Pulse Rate 86 10/31/16 09:46 Respiratory Rate 20 10/31/16 09:46 Blood Pressure 136/85 10/31/16 09:46 O2 Sat by Pulse Oximetry (%) Laboratory Tests 10/30/16 10/30/16 10/30/16 18:58 21:32 22:35 WBC RBC Hgb Hct MCV MCHC RDW Plt Count MPV Sodium Potassium Chloride Carbon Dioxide Anion Gap BUN Creatinine Creat Clearance w eGFR POC Glucometer 106 144 Random Glucose Calcium Total Bilirubin AST ALT Alkaline Phosphatase Total Protein Albumin Urine Color Yellow Urine Appearance Clear Urine pH 5.0 Ur Specific [place] 1.013 Urine Protein Negative Urine Glucose (UA) Negative Urine Ketones Negative Urine Blood 1+ H Urine Nitrite Negative Urine Bilirubin Negative Urine Urobilinogen Negative Ur Leukocyte Esterase Negative Urine RBC None Urine WBC 3 Hyaline Casts 1 Urine Mucus Many 10/31/16 10/31/16 10/31/16 06:17 07:00 07:00 WBC 4.2 RBC 4.57 Hgb 14.1 Hct 42.1 MCV 92.1 MCHC 33.5 RDW 14.3 Plt Count 124 L D MPV 9.3 Sodium 141 Potassium 3.8 Chloride 102 Carbon Dioxide 28 Anion Gap 11 BUN 5 L D Creatinine 0.6 L Creat Clearance w eGFR > 60 POC Glucometer 96 Random Glucose 106 D Calcium 8.0 L Total Bilirubin 0.9 D AST 86 H D ALT 48 D Alkaline Phosphatase 83 D Total Protein 6.9 Albumin 3.6 Urine Color Urine Appearance Urine pH Ur Specific [place] Urine Protein Urine Glucose (UA) Urine Ketones Urine Blood Urine Nitrite Urine Bilirubin Urine Urobilinogen Ur Leukocyte Esterase Urine RBC Urine WBC Hyaline Casts Urine Mucus pt aox3 ++tremors , no confabulation or hallucination Assessment: 10/31/16 11:09 withdrawl sx's Plan: cont. detox increase fluids librium prn f/up pending xrays cont. to monitor ms
[2016-10-31] MEDS: PRENATAL VITAMINS W/ FOLIC ACID TABLET (FP) PO SCH (11:13)
[2016-10-31] MEDS: amLODIPine BESYLATE 10 MG TABLET (FP) PO SCH (11:14)
--- NOTE | 2016-10-31 14:15 | EKG ---
Test Reason : Blood Pressure : / mmHG Vent. Rate : 098 BPM Atrial Rate : 098 BPM P-R Int : 144 ms QRS Dur : 088 ms QT Int : 366 ms P-R-T Axes : 072 077 068 degrees QTc Int : 467 ms NORMAL SINUS RHYTHM MODERATE VOLTAGE CRITERIA FOR LVH, MAY BE NORMAL VARIANT BORDERLINE ECG WHEN COMPARED WITH ECG OF 24-SEP-2016 02:46, NO SIGNIFICANT CHANGE WAS FOUND Confirmed by RAUL DAI, DEVIKA ([id number]) on 10/31/2016 2:15:01 PM Referred By: Confirmed By:DEVIKA CARTER MD
[2016-10-31] MEDS: diphenhydrAMINE HCL 50 MG CAPSULE PO PRN (22:43)
[2016-10-31] MEDS: THIAMINE HCL 100 MG TABLET (FP) PO SCH (22:43)
[2016-11-01] MEDS: chlordiazePOXIDE HCL 25 MG CAPSULE PO SCH ×3 (05:35→17:34)
[2016-11-01] MEDS: metFORMIN HCL 500 MG TABLET (FP) PO SCH ×2 (08:30→17:25)
--- NOTE | 2016-11-01 10:02 | PN ---
[facility] CIWA - CIWA Score Nausea/Vomitin Muscle Tremors: 3 Anxiety: 2 Agitation: 2 Paroxysmal Sweats: 1-Minimal Palms Moist Orientation: 0-Oriented Tacttile Disturbances: 1-Very Mild Itch/Numbness Auditory Disturbances: 1-Very Mild Visual Disturbances: 1-Very Mild Sensitivity Headache: 2-Mild CIWA-Ar Total Score: 16 [facility] Progress Note (SOAP) Subjective: alert,irritable,anxious,interrupted sleep,tremor Objective: 11/01/16 10:01 Vital Signs Temperature 97.7 F 11/01/16 06:00 Pulse Rate 68 11/01/16 06:00 Respiratory Rate 18 11/01/16 06:00 Blood Pressure 117/73 11/01/16 06:00 O2 Sat by Pulse Oximetry (%) Assessment: 11/01/16 10:01 Vital Signs Temperature 97.7 F 11/01/16 06:00 Pulse Rate 68 11/01/16 06:00 Respiratory Rate 18 11/01/16 06:00 Blood Pressure 117/73 11/01/16 06:00 O2 Sat by Pulse Oximetry (%) 11/01/16 10:01 withdrawal symptom Plan: continue detox
--- NOTE | 2016-11-01 10:07 | PN ---
[facility] Progress Note Note: Laboratory Last Values WBC 4.2 K/mm3 (4.0-10.0) 10/31/16 07:00 RBC 4.57 M/mm3 (4.00-5.60) 10/31/16 07:00 Hgb 14.1 GM/dL (11.7-16.9) 10/31/16 07:00 Hct 42.1 % (35.4-49) 10/31/16 07:00 MCV 92.1 fl (80-96) 10/31/16 07:00 MCHC 33.5 g/dl (32.0-35.9) 10/31/16 07:00 RDW 14.3 % (11.9-15.9) 10/31/16 07:00 Plt Count 124 K/MM3 (134-434) L D 10/31/16 07:00 MPV 9.3 fl (7.5-11.1) 10/31/16 07:00 Sodium 141 mmol/L (136-145) 10/31/16 07:00 Potassium 3.8 mmol/L (3.5-5.1) 10/31/16 07:00 Chloride 102 mmol/L (98-107) 10/31/16 07:00 Carbon Dioxide 28 mmol/L (21-32) 10/31/16 07:00 Anion Gap 11 (8-16) 10/31/16 07:00 BUN 5 mg/dL (7-18) L D 10/31/16 07:00 Creatinine 0.6 mg/dL (0.7-1.3) L 10/31/16 07:00 Creat Clearance w eGFR > 60 (>60) 10/31/16 07:00 POC Glucometer 90 UNITS (()) 11/01/16 05:45 Random Glucose 106 mg/dL (74-106) D 10/31/16 07:00 Calcium 8.0 mg/dL (8.5-10.1) L 10/31/16 07:00 Total Bilirubin 0.9 mg/dL (0.2-1.0) D 10/31/16 07:00 AST 86 U/L (15-37) H D 10/31/16 07:00 ALT 48 U/L (12-78) D 10/31/16 07:00 Alkaline Phosphatase 83 U/L (45-117) D 10/31/16 07:00 Total Protein 6.9 g/dl (6.4-8.2) 10/31/16 07:00 Albumin 3.6 g/dl (3.4-5.0) 10/31/16 07:00 Urine Color Yellow 10/30/16 22:35 Urine Appearance Clear 10/30/16 22:35 Urine pH 5.0 (5.0-8.0) 10/30/16 22:35 Ur Specific [place] 1.013 (1.001-1.035) 10/30/16 22:35 Urine Protein Negative (NEGATIVE) 10/30/16 22:35 Urine Glucose (UA) Negative (NEGATIVE) 10/30/16 22:35 Urine Ketones Negative (NEGATIVE) 10/30/16 22:35 Urine Blood 1+ (NEGATIVE) H 10/30/16 22:35 Urine Nitrite Negative (NEGATIVE) 10/30/16 22:35 Urine Bilirubin Negative (NEGATIVE) 10/30/16 22:35 Urine Urobilinogen Negative E.U./dl (0.2-1.0) 10/30/16 22:35 Ur Leukocyte Esterase Negative (NEGATIVE) 10/30/16 22:35 Urine RBC None /hpf (0-3) 10/30/16 22:35 Urine WBC 3 /hpf (3-5) 10/30/16 22:35 Hyaline Casts 1 /lpf 10/30/16 22:35 Urine Mucus Many 10/30/16 22:35 RPR Titer Nonreactive (NONREACTIVE) 10/31/16 07:00 glucose 90 continue detox,bgm monitoring
[2016-11-01] MEDS: PRENATAL VITAMINS W/ FOLIC ACID TABLET (FP) PO SCH (10:13)
[2016-11-01] MEDS: amLODIPine BESYLATE 10 MG TABLET (FP) PO SCH (10:13)
[2016-11-01] MEDS: THIAMINE HCL 100 MG TABLET (FP) PO SCH (22:11)
[2016-11-01] MEDS: chlordiazePOXIDE 5 MG CAPSULE PO SCH (22:11)
[2016-11-01] MEDS: diphenhydrAMINE HCL 50 MG CAPSULE PO PRN (22:12)
[2016-11-02] MEDS: metFORMIN HCL 500 MG TABLET (FP) PO SCH ×2 (09:21→18:22)
[2016-11-02] MEDS: chlordiazePOXIDE 5 MG CAPSULE PO SCH ×3 (09:21→18:22)
--- NOTE | 2016-11-02 10:18 | PN ---
S Progress Note (SOAP) Subjective: ALERT,IRRITABLE,ANXIOUS,INTERRUPTED SLEEP Objective: 11/02/16 10:17 Vital Signs Temperature 96.7 F L 11/02/16 06:26 Pulse Rate 58 L 11/02/16 06:26 Respiratory Rate 16 11/02/16 06:26 Blood Pressure 100/68 11/02/16 06:26 O2 Sat by Pulse Oximetry (%) Assessment: 11/02/16 10:17 WITHDRAWAL SYMPTOM Plan: CONTINUE DETOX,DISCHARGE IN AM
[2016-11-02] MEDS: amLODIPine BESYLATE 10 MG TABLET (FP) PO SCH (10:43)
[2016-11-02] MEDS: PRENATAL VITAMINS W/ FOLIC ACID TABLET (FP) PO SCH (10:43)
[2016-11-02] MEDS: chlordiazePOXIDE HCL 10 MG CAPSULE PO SCH (22:38)
[2016-11-02] MEDS: THIAMINE HCL 100 MG TABLET (FP) PO SCH (22:38)
[2016-11-02] MEDS: diphenhydrAMINE HCL 50 MG CAPSULE PO PRN (22:39)
[2016-11-03] MEDS: chlordiazePOXIDE HCL 10 MG CAPSULE PO SCH ×3 (05:53→17:41)
--- NOTE | 2016-11-03 09:16 | PN ---
S Progress Note (SOAP) Subjective: ALERT,NO COMPLAINT Objective: 11/03/16 09:14 Vital Signs Temperature 97.1 F L 11/03/16 06:41 Pulse Rate 74 11/03/16 06:41 Respiratory Rate 18 11/03/16 06:41 Blood Pressure 104/69 11/03/16 06:41 O2 Sat by Pulse Oximetry (%) Assessment: 11/03/16 09:14 DETOX COMPLETED,NO WITHDRAWAL SYMPTOM Plan: DISCHARGE TODAY,FOLLOW UP WITH AFTER CARE PROGRAM [facility]
--- NOTE | 2016-11-03 09:17 | DS ---
[facility] Detox Discharge Summary Admission Date: 10/30/16 Discharge Date: 11/03/16 - History Present History: Alcohol Dependence Additional Comments: FOLLOW UP WITH [facility] AND PMD FOR MEDICAL PROBLEM Pertinent Past History: HYPERTENSION TYPE 2 DM RIGHT KNEE PAIN HEPATITIS C - Physical Exam Results Vital Signs: Vital Signs Temperature 97.1 F L 11/03/16 06:41 Pulse Rate 74 11/03/16 06:41 Respiratory Rate 18 11/03/16 06:41 Blood Pressure 104/69 11/03/16 06:41 O2 Sat by Pulse Oximetry (%) Pertinent Admission Physical Exam Findings: WITHDRAWAL SYMPTOM - Treatment Hospital Course: Detox Protocol Followed, Detoxed Safely, Responded well, Discharged Condition Good, Rehab Referral Accepted Patient has Accepted a Rehab Referral to: [facility] - Medication Discharge Medications: Ambulatory Orders Metformin HCl [Glucophage -] 500 mg PO DAILY 09/23/16 - AMA Did Patient Leave Against Medical Advice: No
[2016-11-03] MEDS: metFORMIN HCL 500 MG TABLET (FP) PO SCH ×2 (10:13→17:30)
[2016-11-03] MEDS: PRENATAL VITAMINS W/ FOLIC ACID TABLET (FP) PO SCH (10:14)
[2016-11-03] MEDS: amLODIPine BESYLATE 10 MG TABLET (FP) PO SCH (10:14)
[2016-11-03 17:25] VITALS: BP 103/57; PULSE 67; TEMP 98.4
== END 2016-11-03 17:40 | disposition other institution (70) | DRG 775 ==
LOC: YASAS 16:31 → Y6N 19:13
PROVIDERS: ADMIT Internal Medicine Addiction Medicine; ATTEND Internal Medicine Addiction Medicine
PROC: HZ2ZZZZ Detoxification Services for Substance Abuse Treatment (ICD-10-PCS; principal; 2016-11-03)
DX: F10.230 Alcohol dependence with withdrawal, uncomplicated (principal); F17.210 Nicotine dependence, cigarettes, uncomplicated; F19.20 Other psychoactive substance dependence, uncomplicated; I10 Essential (primary) hypertension; E11.9 Type 2 diabetes mellitus without complications; Z79.84 Long term (current) use of oral hypoglycemic drugs; B18.2 Chronic viral hepatitis C; M62.81 Muscle weakness (generalized); R63.4 Abnormal weight loss; Z68.22 Body mass index [BMI] 22.0-22.9, adult; Z59.0 Homelessness
CPT/HCPCS: 36415; 73560-TC-RT; 73610-TC-RT; 73630-TC-RT; 80053; 81003; 81015; 82140; 85027; 86593; 93005; 93010

== ENCOUNTER 2016-11-03 18:03 | Inpatient (IN) | payer OTHER ==
[2016-11-03] MEDS ORDERED: ACETAMINOPHEN 325 MG TABLET (FP) PO PRN (18:26)
[2016-11-03] MEDS ORDERED: P-EPHED 60MG/TRIPROLIDI 2.5MG TABLET PO PRN (18:26)
[2016-11-03] MEDS ORDERED: guaiFENesin/D-METHORPHAN HB 10 ML UNIT-DOSE CUPS PO PRN (18:26)
[2016-11-03] MEDS ORDERED: MAG HYDROX/AL HYDROX/SIMETH 30 ML UNIT-DOSE CUP PO PRN (18:26)
[2016-11-03] MEDS ORDERED: MAGNESIUM CITRATE 300 ML BOTTLE PO PRN (18:26)
[2016-11-03] MEDS ORDERED: hydrOXYzine PAMOATE 50 MG CAPSULE (FP) PO PRN (18:26)
[2016-11-03] MEDS ORDERED: LOPERAMIDE HCL 2 MG CAPSULE PO PRN (18:26)
[2016-11-03] MEDS ORDERED: MAGNESIUM HYDROX 2400MG/30ML ORAL SUSPENSION 30 ML CUP PO PRN (18:26)
[2016-11-03] MEDS ORDERED: MENTHOL/PHENOL 1 EACH UD MM PRN (18:26)
[2016-11-03] MEDS: diphenhydrAMINE HCL 50 MG CAPSULE PO PRN (21:31)
[2016-11-03] MEDS: THIAMINE HCL 100 MG TABLET (FP) PO SCH (21:31)
[2016-11-04] MEDS: metFORMIN HCL 500 MG TABLET (FP) PO SCH (06:30)
--- NOTE | 2016-11-04 09:36 | HP ---
Psychiatrist Admission - Data Date of interview: 11/04/16 Admission source: 6N Identifying data: This is the first 5N inpatient rehabilitation admission for this 46 y/o male who is single without children currently homeless, unemployed and supported on food stamps. Medical History: Hep C,diabetes mellitus and abdominal herniorraphy.Noted current right leg brace and report of knee effusion, smokes cigarettes 2 a day. Psychiatric History: Patient reports no history of psychiatric treatment. Physical/Sexual Abuse/Trauma History: Denies history of sexual, physical and verbal abuse. Vital Signs: Vital Signs - 24 hr 11/04/16 11/04/16 11/04/16 00:30 03:25 07:16 Temperature 97.3 F L Pulse Rate 76 Respiratory 16 16 18 Rate Blood Pressure 123/72 Allergies/Adverse Reactions: Allergies Allergy/AdvReac Type Severity Reaction Status Date / Time Penicillins Allergy Verified 10/30/16 18:41 Date of last physical exam: 10/30/16 Concur with the findings of this exam: Yes - Substance Abuse/Tx History Hx Alcohol Use: Yes ( 4 pints Vodka. Age of first use: 21.) Hx Substance Use: No Substance Use Type: None Hx Substance Use Treatment: Yes ([facility].) - Admission Criteria Previous failed treatment: Yes Poor recovery environment: Yes Comorbidities: No Lacks judgement: Yes Mental Status Exam - Mental Status Exam Alert and Oriented to: Time, Place, Person Cognitive Function: Good Patient Appearance: Well Groomed Mood: Sad, Anxious Affect: Appropriate, Mood Congruent Patient Behavior: Appropriate, Cooperative Speech Pattern: Clear, Appropriate Voice Loudness: Normal Thought Process: Intact, Goal Oriented Thought Disorder: Not Present Hallucinations: Denies Suicidal Ideation: Denies Homicidal Ideation: Denies Insight/Judgement: Fair Sleep: Fair Appetite: Poor, Weight loss Muscle strength/Tone: Normal Gait/Station: Normal Psychiatric Findings - Problem List ([place] 1, 2,3) (1) Nicotine dependence Current Visit: No Status: Acute Qualifiers: Nicotine product type: cigarettes Substance use status: uncomplicated Qualified Code(s): F17.210 - Nicotine dependence, cigarettes, uncomplicated (2) Hepatitis C antibody test positive Current Visit: No Status: Chronic (3) Knee effusion, right Current Visit: No Status: Chronic (4) Alcohol dependence Current Visit: Yes Status: Acute - Initial Treatment Plan Initial Treatment Plan: will monitor progress as needed.
[2016-11-04] MEDS: amLODIPine BESYLATE 10 MG TABLET (FP) PO SCH (09:38)
[2016-11-04] MEDS: PRENATAL VITAMINS W/ FOLIC ACID TABLET (FP) PO SCH (09:38)
[2016-11-04] MEDS: NICOTINE 21 MG/24 HOURS TOPICAL PATCH TD SCH (09:39)
[2016-11-04 12:07] LABS: HIV 1 & 2 AB NEGATIVE; HIV 1 AGp24 NEGATIVE
[2016-11-04] MEDS: diphenhydrAMINE HCL 50 MG CAPSULE PO PRN (21:33)
[2016-11-04] MEDS: THIAMINE HCL 100 MG TABLET (FP) PO SCH (21:33)
[2016-11-05] MEDS: metFORMIN HCL 500 MG TABLET (FP) PO SCH (06:26)
[2016-11-05] MEDS: PRENATAL VITAMINS W/ FOLIC ACID TABLET (FP) PO SCH (09:45)
[2016-11-05] MEDS: amLODIPine BESYLATE 10 MG TABLET (FP) PO SCH (09:45)
[2016-11-05] MEDS: NICOTINE 21 MG/24 HOURS TOPICAL PATCH TD SCH (09:46)
[2016-11-05 10:35] LABS: CALCIUM 8.8 mg/dL (8.5-10.1); CREATININE 0.7 mg/dL (0.7-1.3)
--- NOTE | 2016-11-05 13:15 | PN ---
[facility] Progress Note Note: 46 y/o m pt with h/o chronic alcoholism now in rehab. ammonia level 41.1 -pt aox3 in nad . states hes he is overall improved. t answered all questions appropriately ,. There is no hallucination, confabulations . Mental status intact -no tx for encephalopathy indicated at this time .
[2016-11-05] MEDS: THIAMINE HCL 100 MG TABLET (FP) PO SCH (21:05)
[2016-11-05] MEDS: diphenhydrAMINE HCL 50 MG CAPSULE PO PRN (21:05)
[2016-11-06] MEDS: metFORMIN HCL 500 MG TABLET (FP) PO SCH (06:39)
[2016-11-06] MEDS: NICOTINE 21 MG/24 HOURS TOPICAL PATCH TD SCH (10:00)
[2016-11-06] MEDS: PRENATAL VITAMINS W/ FOLIC ACID TABLET (FP) PO SCH (10:00)
[2016-11-06] MEDS: amLODIPine BESYLATE 10 MG TABLET (FP) PO SCH (10:00)
[2016-11-06] MEDS: diphenhydrAMINE HCL 50 MG CAPSULE PO PRN (21:17)
[2016-11-06] MEDS: THIAMINE HCL 100 MG TABLET (FP) PO SCH (21:17)
[2016-11-07] MEDS: metFORMIN HCL 500 MG TABLET (FP) PO SCH (06:34)
[2016-11-07] MEDS: PRENATAL VITAMINS W/ FOLIC ACID TABLET (FP) PO SCH (10:08)
[2016-11-07] MEDS: NICOTINE 21 MG/24 HOURS TOPICAL PATCH TD SCH (10:08)
[2016-11-07] MEDS: amLODIPine BESYLATE 10 MG TABLET (FP) PO SCH (10:08)
[2016-11-07] MEDS: diphenhydrAMINE HCL 50 MG CAPSULE PO PRN (21:18)
[2016-11-07] MEDS: THIAMINE HCL 100 MG TABLET (FP) PO SCH (21:18)
[2016-11-08] MEDS: metFORMIN HCL 500 MG TABLET (FP) PO SCH (06:42)
[2016-11-08] MEDS: NICOTINE 21 MG/24 HOURS TOPICAL PATCH TD SCH (10:06)
[2016-11-08] MEDS: amLODIPine BESYLATE 10 MG TABLET (FP) PO SCH (10:06)
[2016-11-08] MEDS: PRENATAL VITAMINS W/ FOLIC ACID TABLET (FP) PO SCH (10:07)
[2016-11-08] MEDS: diphenhydrAMINE HCL 50 MG CAPSULE PO PRN (21:32)
[2016-11-08] MEDS: THIAMINE HCL 100 MG TABLET (FP) PO SCH (21:32)
[2016-11-09] MEDS: metFORMIN HCL 500 MG TABLET (FP) PO SCH (06:18)
[2016-11-09] MEDS: PRENATAL VITAMINS W/ FOLIC ACID TABLET (FP) PO SCH (09:43)
[2016-11-09] MEDS: amLODIPine BESYLATE 10 MG TABLET (FP) PO SCH (09:43)
[2016-11-09] MEDS: NICOTINE 21 MG/24 HOURS TOPICAL PATCH TD SCH (09:44)
[2016-11-09] MEDS: diphenhydrAMINE HCL 50 MG CAPSULE PO PRN (21:19)
[2016-11-09] MEDS: THIAMINE HCL 100 MG TABLET (FP) PO SCH (21:19)
[2016-11-10] MEDS: metFORMIN HCL 500 MG TABLET (FP) PO SCH (06:23)
[2016-11-10] MEDS: amLODIPine BESYLATE 10 MG TABLET (FP) PO SCH (09:45)
[2016-11-10] MEDS: PRENATAL VITAMINS W/ FOLIC ACID TABLET (FP) PO SCH (09:45)
[2016-11-10] MEDS: NICOTINE 21 MG/24 HOURS TOPICAL PATCH TD SCH (09:46)
[2016-11-10] MEDS: diphenhydrAMINE HCL 50 MG CAPSULE PO PRN (21:31)
[2016-11-10] MEDS: THIAMINE HCL 100 MG TABLET (FP) PO SCH (21:31)
[2016-11-11] MEDS: metFORMIN HCL 500 MG TABLET (FP) PO SCH (06:31)
[2016-11-11] MEDS: amLODIPine BESYLATE 10 MG TABLET (FP) PO SCH (09:38)
[2016-11-11] MEDS: PRENATAL VITAMINS W/ FOLIC ACID TABLET (FP) PO SCH (09:38)
[2016-11-11] MEDS: NICOTINE 21 MG/24 HOURS TOPICAL PATCH TD SCH (09:38)
[2016-11-11] MEDS: THIAMINE HCL 100 MG TABLET (FP) PO SCH (21:44)
[2016-11-11] MEDS: diphenhydrAMINE HCL 50 MG CAPSULE PO PRN (21:45)
[2016-11-12] MEDS: metFORMIN HCL 500 MG TABLET (FP) PO SCH (06:29)
[2016-11-12] MEDS: amLODIPine BESYLATE 10 MG TABLET (FP) PO SCH (09:27)
[2016-11-12] MEDS: PRENATAL VITAMINS W/ FOLIC ACID TABLET (FP) PO SCH (09:27)
[2016-11-12] MEDS: NICOTINE 21 MG/24 HOURS TOPICAL PATCH TD SCH (09:28)
[2016-11-12] MEDS: THIAMINE HCL 100 MG TABLET (FP) PO SCH (21:20)
[2016-11-12] MEDS: diphenhydrAMINE HCL 50 MG CAPSULE PO PRN (21:21)
[2016-11-13] MEDS: metFORMIN HCL 500 MG TABLET (FP) PO SCH (06:31)
[2016-11-13] MEDS: amLODIPine BESYLATE 10 MG TABLET (FP) PO SCH (09:24)
[2016-11-13] MEDS: NICOTINE 21 MG/24 HOURS TOPICAL PATCH TD SCH (09:24)
[2016-11-13] MEDS: PRENATAL VITAMINS W/ FOLIC ACID TABLET (FP) PO SCH (09:24)
[2016-11-13] MEDS: THIAMINE HCL 100 MG TABLET (FP) PO SCH (21:15)
[2016-11-13] MEDS: diphenhydrAMINE HCL 50 MG CAPSULE PO PRN (21:15)
[2016-11-14] MEDS: metFORMIN HCL 500 MG TABLET (FP) PO SCH (06:36)
[2016-11-14] MEDS: PRENATAL VITAMINS W/ FOLIC ACID TABLET (FP) PO SCH (09:58)
[2016-11-14] MEDS: amLODIPine BESYLATE 10 MG TABLET (FP) PO SCH (09:58)
[2016-11-14] MEDS: NICOTINE 21 MG/24 HOURS TOPICAL PATCH TD SCH (09:58)
[2016-11-14] MEDS: THIAMINE HCL 100 MG TABLET (FP) PO SCH (21:14)
[2016-11-14] MEDS: diphenhydrAMINE HCL 50 MG CAPSULE PO PRN (21:14)
[2016-11-15] MEDS: metFORMIN HCL 500 MG TABLET (FP) PO SCH (06:29)
[2016-11-15] MEDS: NICOTINE 21 MG/24 HOURS TOPICAL PATCH TD SCH (09:27)
[2016-11-15] MEDS: amLODIPine BESYLATE 10 MG TABLET (FP) PO SCH (09:27)
[2016-11-15] MEDS: PRENATAL VITAMINS W/ FOLIC ACID TABLET (FP) PO SCH (09:27)
[2016-11-15] MEDS: THIAMINE HCL 100 MG TABLET (FP) PO SCH (21:20)
[2016-11-15] MEDS: diphenhydrAMINE HCL 50 MG CAPSULE PO PRN (21:20)
[2016-11-16] MEDS: metFORMIN HCL 500 MG TABLET (FP) PO SCH (06:54)
[2016-11-16] MEDS: NICOTINE 21 MG/24 HOURS TOPICAL PATCH TD SCH (09:41)
[2016-11-16] MEDS: PRENATAL VITAMINS W/ FOLIC ACID TABLET (FP) PO SCH (09:42)
[2016-11-16] MEDS: amLODIPine BESYLATE 10 MG TABLET (FP) PO SCH (09:42)
[2016-11-16] MEDS: diphenhydrAMINE HCL 50 MG CAPSULE PO PRN (21:15)
[2016-11-16] MEDS: THIAMINE HCL 100 MG TABLET (FP) PO SCH (21:15)
[2016-11-17] MEDS: metFORMIN HCL 500 MG TABLET (FP) PO SCH (06:42)
[2016-11-17] MEDS: PRENATAL VITAMINS W/ FOLIC ACID TABLET (FP) PO SCH (09:39)
[2016-11-17] MEDS: NICOTINE 21 MG/24 HOURS TOPICAL PATCH TD SCH (09:39)
[2016-11-17] MEDS: amLODIPine BESYLATE 10 MG TABLET (FP) PO SCH (09:39)
[2016-11-17] MEDS: diphenhydrAMINE HCL 50 MG CAPSULE PO PRN (21:23)
[2016-11-17] MEDS: THIAMINE HCL 100 MG TABLET (FP) PO SCH (21:23)
[2016-11-18] MEDS: metFORMIN HCL 500 MG TABLET (FP) PO SCH (06:20)
[2016-11-18] MEDS: amLODIPine BESYLATE 10 MG TABLET (FP) PO SCH (09:46)
[2016-11-18] MEDS: NICOTINE 21 MG/24 HOURS TOPICAL PATCH TD SCH (09:46)
[2016-11-18] MEDS: PRENATAL VITAMINS W/ FOLIC ACID TABLET (FP) PO SCH (09:46)
[2016-11-18] MEDS: THIAMINE HCL 100 MG TABLET (FP) PO SCH (21:25)
[2016-11-18] MEDS: diphenhydrAMINE HCL 50 MG CAPSULE PO PRN (21:25)
[2016-11-19] MEDS: metFORMIN HCL 500 MG TABLET (FP) PO SCH (06:19)
[2016-11-19] MEDS: NICOTINE 21 MG/24 HOURS TOPICAL PATCH TD SCH (09:47)
[2016-11-19] MEDS: amLODIPine BESYLATE 10 MG TABLET (FP) PO SCH (09:47)
[2016-11-19] MEDS: PRENATAL VITAMINS W/ FOLIC ACID TABLET (FP) PO SCH (09:47)
[2016-11-19] MEDS: THIAMINE HCL 100 MG TABLET (FP) PO SCH (21:10)
[2016-11-19] MEDS: diphenhydrAMINE HCL 50 MG CAPSULE PO PRN (21:11)
[2016-11-20] MEDS: metFORMIN HCL 500 MG TABLET (FP) PO SCH (06:39)
[2016-11-20] MEDS: NICOTINE 21 MG/24 HOURS TOPICAL PATCH TD SCH (09:45)
[2016-11-20] MEDS: amLODIPine BESYLATE 10 MG TABLET (FP) PO SCH (09:45)
[2016-11-20] MEDS: PRENATAL VITAMINS W/ FOLIC ACID TABLET (FP) PO SCH (09:45)
[2016-11-20] MEDS: diphenhydrAMINE HCL 50 MG CAPSULE PO PRN (21:15)
[2016-11-20] MEDS: THIAMINE HCL 100 MG TABLET (FP) PO SCH (21:15)
[2016-11-21] MEDS: metFORMIN HCL 500 MG TABLET (FP) PO SCH (06:11)
[2016-11-21] MEDS: PRENATAL VITAMINS W/ FOLIC ACID TABLET (FP) PO SCH (09:58)
[2016-11-21] MEDS: amLODIPine BESYLATE 10 MG TABLET (FP) PO SCH (09:58)
[2016-11-21] MEDS: NICOTINE 21 MG/24 HOURS TOPICAL PATCH TD SCH (09:58)
[2016-11-21] MEDS: diphenhydrAMINE HCL 50 MG CAPSULE PO PRN (21:11)
[2016-11-21] MEDS: THIAMINE HCL 100 MG TABLET (FP) PO SCH (21:11)
[2016-11-22] MEDS: metFORMIN HCL 500 MG TABLET (FP) PO SCH (06:25)
[2016-11-22] MEDS: amLODIPine BESYLATE 10 MG TABLET (FP) PO SCH (09:39)
[2016-11-22] MEDS: NICOTINE 21 MG/24 HOURS TOPICAL PATCH TD SCH (09:39)
[2016-11-22] MEDS: PRENATAL VITAMINS W/ FOLIC ACID TABLET (FP) PO SCH (09:39)
[2016-11-22] MEDS: THIAMINE HCL 100 MG TABLET (FP) PO SCH (21:12)
[2016-11-22] MEDS: diphenhydrAMINE HCL 50 MG CAPSULE PO PRN (21:12)
[2016-11-23] MEDS: metFORMIN HCL 500 MG TABLET (FP) PO SCH (06:19)
[2016-11-23] MEDS: NICOTINE 21 MG/24 HOURS TOPICAL PATCH TD SCH (09:48)
[2016-11-23] MEDS: amLODIPine BESYLATE 10 MG TABLET (FP) PO SCH (09:48)
[2016-11-23] MEDS: PRENATAL VITAMINS W/ FOLIC ACID TABLET (FP) PO SCH (09:48)
[2016-11-23] MEDS: THIAMINE HCL 100 MG TABLET (FP) PO SCH (21:49)
[2016-11-23] MEDS: diphenhydrAMINE HCL 50 MG CAPSULE PO PRN (21:49)
[2016-11-24] MEDS: metFORMIN HCL 500 MG TABLET (FP) PO SCH (06:13)
[2016-11-24] MEDS: PRENATAL VITAMINS W/ FOLIC ACID TABLET (FP) PO SCH (09:44)
[2016-11-24] MEDS: amLODIPine BESYLATE 10 MG TABLET (FP) PO SCH (09:44)
[2016-11-24] MEDS: NICOTINE 21 MG/24 HOURS TOPICAL PATCH TD SCH (09:44)
[2016-11-24] MEDS: diphenhydrAMINE HCL 50 MG CAPSULE PO PRN (21:23)
[2016-11-24] MEDS: THIAMINE HCL 100 MG TABLET (FP) PO SCH (21:23)
[2016-11-25] MEDS: metFORMIN HCL 500 MG TABLET (FP) PO SCH (06:13)
[2016-11-25] MEDS: amLODIPine BESYLATE 10 MG TABLET (FP) PO SCH (09:56)
[2016-11-25] MEDS: PRENATAL VITAMINS W/ FOLIC ACID TABLET (FP) PO SCH (09:56)
[2016-11-25] MEDS: NICOTINE 21 MG/24 HOURS TOPICAL PATCH TD SCH (09:56)
[2016-11-25] MEDS: IBUPROFEN 400 MG TABLET (FP) PO PRN (14:14)
[2016-11-25] MEDS: THIAMINE HCL 100 MG TABLET (FP) PO SCH (21:10)
[2016-11-25] MEDS: diphenhydrAMINE HCL 50 MG CAPSULE PO PRN (21:10)
[2016-11-26] MEDS: metFORMIN HCL 500 MG TABLET (FP) PO SCH (06:21)
[2016-11-26] MEDS: IBUPROFEN 400 MG TABLET (FP) PO PRN ×2 (06:22→21:06)
[2016-11-26] MEDS: NICOTINE 21 MG/24 HOURS TOPICAL PATCH TD SCH (09:35)
[2016-11-26] MEDS: PRENATAL VITAMINS W/ FOLIC ACID TABLET (FP) PO SCH (09:35)
[2016-11-26] MEDS: amLODIPine BESYLATE 10 MG TABLET (FP) PO SCH (09:35)
[2016-11-26] MEDS: diphenhydrAMINE HCL 50 MG CAPSULE PO PRN (21:06)
[2016-11-26] MEDS: THIAMINE HCL 100 MG TABLET (FP) PO SCH (21:06)
[2016-11-27] MEDS: metFORMIN HCL 500 MG TABLET (FP) PO SCH (06:10)
[2016-11-27] MEDS: IBUPROFEN 400 MG TABLET (FP) PO PRN ×2 (09:53→21:03)
[2016-11-27] MEDS: PRENATAL VITAMINS W/ FOLIC ACID TABLET (FP) PO SCH (09:54)
[2016-11-27] MEDS: NICOTINE 21 MG/24 HOURS TOPICAL PATCH TD SCH (09:54)
[2016-11-27] MEDS: amLODIPine BESYLATE 10 MG TABLET (FP) PO SCH (09:54)
[2016-11-27] MEDS: diphenhydrAMINE HCL 50 MG CAPSULE PO PRN (21:03)
[2016-11-27] MEDS: THIAMINE HCL 100 MG TABLET (FP) PO SCH (21:03)
[2016-11-28] MEDS: IBUPROFEN 400 MG TABLET (FP) PO PRN (06:19)
[2016-11-28] MEDS: metFORMIN HCL 500 MG TABLET (FP) PO SCH (06:19)
[2016-11-28 06:42] VITALS: BP 109/84; PULSE 75; TEMP 97.9
--- NOTE | 2016-11-28 08:57 | PN ---
Psychiatric Progress Note Vital Signs: Vital Signs Period Temp Pulse Resp BP Sys/Smith Pulse Ox Last 24 Hr 97.9 F 75-84 18-18 109-114/66-84 Date of Session: 11/28/16 Chief Complaint:: discharge visit HPI: Patient has addressed alcohol, nicotine dependence Current Medications: Active Medications Generic Name Dose Route Start Last Admin Trade Name Freq PRN Reason Stop Dose Admin Acetaminophen 650 mg 11/03/16 18:26 Tylenol - PO Q4H PRN FEVER OR PAIN Al Hydroxide/Mg Hydroxide 30 ml 11/03/16 18:26 Mylanta Oral Suspension - PO Q6H PRN DYSPEPSIA Amlodipine Besylate 10 mg 11/04/16 10:00 11/27/16 09:54 Norvasc - PO 10 mg DAILY MACKENZIE Administration Diphenhydramine HCl 50 mg 11/03/16 18:26 11/27/16 21:03 Benadryl - PO 50 mg HSMR1 PRN Administration FOR ITCHING Eucalyptus/Menthol/Phenol/Sorbitol 1 each 11/03/16 18:26 Cepastat Lozenge - MM Q4H PRN SORE THROAT Guaifenesin 10 ml 11/03/16 18:26 Robitussin Dm - PO Q6H PRN COUGH Hydroxyzine Pamoate 50 mg 11/03/16 18:26 Vistaril - PO Q4H PRN AGITATION Ibuprofen 400 mg 11/03/16 18:26 11/28/16 06:19 Motrin - PO 400 mg Q6H PRN Administration PAIN Loperamide HCl 4 mg 11/03/16 18:26 Imodium - PO Q6H PRN DIARRHEA Magnesium Hydroxide 30 ml 11/03/16 18:26 Milk Of Magnesia - PO DAILY PRN CONSTIPATION Metformin HCl 500 mg 11/04/16 07:00 11/28/16 06:19 Glucophage - PO 500 mg AM MACKENZIE Administration Nicotine 21 mg 11/04/16 10:00 11/27/16 09:54 Nicoderm Patch - TD Not Given DAILY MACKENZIE Multivit/Folic Acid/Iron 1 tab 11/04/16 10:00 11/27/16 09:54 Vitamins (Sjr) - PO 1 tab DAILY MACKENZIE Administration Pseudoephedrine/Triprolidine 1 combo 11/03/16 18:26 Actifed - PO TID PRN NASAL CONGESTION Thiamine HCl 100 mg 11/03/16 22:00 11/27/16 21:03 Vitamin B1 - PO 100 mg HS MACKENZIE Administration Current Side Effect: No Lab tests ordered: No Lab tests reviewed: Yes Provider note:: Patient has completed this treatment today and met his goals, will continue to address his issues at [facility] inpatient rehabilitation program. Patient gained insights into his addiction and motivated to continue maintain abstinence. Patient was encouraged to utilize all supports available to prevent relapses. Patient is stable for discharge today. Total face to face time:: 20 Mental Status Exam - Mental Status Exam Alert and Oriented to: Time, Place, Person Cognitive Function: Good Patient Appearance: Well Groomed Mood: Hopeful Affect: Appropriate, Mood Congruent Patient Behavior: Appropriate, Cooperative Speech Pattern: Clear, Appropriate Voice Loudness: Normal Thought Process: Intact, Goal Oriented Thought Disorder: Not Present Hallucinations: None Suicidal Ideation: None Homicidal Ideation: None Insight/Judgement: Good Sleep: Well Appetite: Good Muscle strength/Tone: Normal Gait/Station: Normal Psychiatric Treatment Plan - Problem List (1) Nicotine dependence Current Visit: No Qualifiers: Nicotine product type: cigarettes Substance use status: uncomplicated Qualified Code(s): F17.210 - Nicotine dependence, cigarettes, uncomplicated (2) Hepatitis C antibody test positive Current Visit: No (3) Knee effusion, right Current Visit: No (4) Alcohol dependence Current Visit: Yes
[2016-11-28] MEDS: amLODIPine BESYLATE 10 MG TABLET (FP) PO SCH (09:32)
[2016-11-28] MEDS: NICOTINE 21 MG/24 HOURS TOPICAL PATCH TD SCH (09:32)
[2016-11-28] MEDS: PRENATAL VITAMINS W/ FOLIC ACID TABLET (FP) PO SCH (09:32)
== END 2016-11-28 09:35 | disposition home or self-care (01) | DRG 772 ==
LOC: YASAS 18:03 → Y5N 18:05
PROVIDERS: ADMIT Psychiatry & Neurology Psychiatry; ATTEND Psychiatry & Neurology Psychiatry
PROC: HZ42ZZZ Group Counseling for Substance Abuse Treatment, Cognitive-Behavioral (ICD-10-PCS; principal; 2016-11-03)
DX: F10.20 Alcohol dependence, uncomplicated (principal); F17.210 Nicotine dependence, cigarettes, uncomplicated; B18.2 Chronic viral hepatitis C; M25.461 Effusion, right knee; E11.9 Type 2 diabetes mellitus without complications; Z59.0 Homelessness
CPT/HCPCS: 36415; 80048; 82140; 87389

== ENCOUNTER 2019-01-12 14:15 | Inpatient (IN) | payer SELFPAY ==
[2019-01-12 16:37] VITALS: BMI 21.1
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
[2019-01-12] MEDS ORDERED: MAGNESIUM HYDROX 2400MG/30ML ORAL SUSPENSION 30 ML CUP PO PRN (17:06)
[2019-01-12] MEDS ORDERED: IBUPROFEN 400 MG TABLET (FP) PO PRN (17:06)
[2019-01-12] MEDS ORDERED: MAG HYDROX/AL HYDROX/SIMETH 30 ML UNIT-DOSE CUP PO PRN (17:06)
[2019-01-12] MEDS ORDERED: BISMUTH SUBSALICYLATE 524 MG/30 ML UD PO PRN (17:06)
[2019-01-12] MEDS ORDERED: MAGNESIUM CITRATE 300 ML BOTTLE PO PRN (17:06)
[2019-01-12] MEDS ORDERED: ACETAMINOPHEN 325 MG TABLET (FP) PO PRN ×2 (17:06)
[2019-01-12] MEDS ORDERED: hydrOXYzine PAMOATE 25 MG CAPSULE (FP) PO PRN (17:06)
[2019-01-12] MEDS ORDERED: METHOCARBAMOL 500 MG TABLET PO PRN (17:06)
[2019-01-12] MEDS ORDERED: MENTHOL/PHENOL 1 EACH UD MM PRN (17:06)
[2019-01-12] MEDS ORDERED: MELATONIN 5 MG TABLETS PO PRN (17:06)
[2019-01-12] MEDS ORDERED: chlordiazePOXIDE HCL 25 MG CAPSULE PO PRN (17:09)
[2019-01-12] MEDS ORDERED: ALBUTEROL SO4 8 GM HFA INHALER IH PRN (17:09)
[2019-01-12] MEDS ORDERED: chlordiazePOXIDE HCL 25 MG CAPSULE PO ONE (19:00)
[2019-01-12] MEDS: chlordiazePOXIDE HCL 25 MG CAPSULE PO SCH (22:15)
[2019-01-12] MEDS: THIAMINE HCL 100 MG TABLET (FP) PO SCH (22:15)
[2019-01-13 02:21] LABS: URINE APPEARANCE CLEAR; URINE BILIRUBIN NEGATIVE (NEGATIVE); URINE COLOR YELLOW; URINE GLUCOSE (UA) NEGATIVE (NEGATIVE); URINE KETONE NEGATIVE (NEGATIVE); URINE LEUK ESTERASE NEGATIVE (NEGATIVE); URINE NITRITE NEGATIVE (NEGATIVE); URINE PROTEIN NEGATIVE (NEGATIVE)
[2019-01-13] MEDS: chlordiazePOXIDE HCL 25 MG CAPSULE PO SCH ×4 (05:11→23:11)
[2019-01-13 09:56] LABS: HEMATOCRIT 46.1 % (35.4-49); HEMOGLOBIN 15.1 GM/dL (11.7-16.9); MCH 30.7 pg (25.7-33.7); MCHC 32.9 g/dl (32.0-35.9); MEAN CELL VOLUME 93.2 fl (80-96); MEAN PLT VOLUME 9.3 fl (7.5-11.1); PLATELET COUNT 234 K/MM3 (134-434); RBC 4.94 M/mm3 (4.00-5.60); RDW 14.7 % (11.9-15.9)
[2019-01-13 10:07] LABS: ALBUMIN 3.4 g/dl (3.4-5.0); BILIRUBIN,TOTAL 0.7 mg/dL (0.2-1); CALCIUM 9.2 mg/dL (8.5-10.1); CREATININE 0.6 mg/dL (0.55-1.3); POTASSIUM 4.4 mmol/L (3.5-5.1); TOT PROT 6.3 g/dl (6.4-8.2)
[2019-01-13] MEDS: PRENATAL VITAMINS W/ FOLIC ACID TABLET (FP) PO SCH (10:20)
[2019-01-13] MEDS: NICOTINE 7 MG/24 HOURS TOPICAL PATCH TD SCH (10:21)
--- NOTE | 2019-01-13 10:29 | PN ---
[facility] CIWA - CIWA Score Nausea/Vomitin-Mild Nausea/No Vomiting Muscle Tremors: 3 Anxiety: 2 Agitation: 2 Paroxysmal Sweats: 1-Minimal Palms Moist Orientation: 0-Oriented Tacttile Disturbances: 0-None Auditory Disturbances: 0-None Visual Disturbances: 0-None Headache: 1-Very Mild CIWA-Ar Total Score: 10 S Progress Note (SOAP) Subjective: doing well with librium alcohol detox protocol ambulating on hallway social with peers Objective: 01/13/19 10:30 Vital Signs Temperature 96.6 F L 01/13/19 09:05 Pulse Rate 88 01/13/19 09:05 Respiratory Rate 18 01/13/19 09:05 Blood Pressure 109/65 01/13/19 09:05 O2 Sat by Pulse Oximetry (%) Laboratory Last Values WBC 6.0 K/mm3 (4.0-10.0) 01/13/19 07:00 RBC 4.94 M/mm3 (4.00-5.60) 01/13/19 07:00 Hgb 15.1 GM/dL (11.7-16.9) 01/13/19 07:00 Hct 46.1 % (35.4-49) 01/13/19 07:00 MCV 93.2 fl (80-96) 01/13/19 07:00 MCH 30.7 pg (25.7-33.7) 01/13/19 07:00 MCHC 32.9 g/dl (32.0-35.9) 01/13/19 07:00 RDW 14.7 % (11.9-15.9) 01/13/19 07:00 Plt Count 234 K/MM3 (134-434) D 01/13/19 07:00 MPV 9.3 fl (7.5-11.1) 01/13/19 07:00 Sodium 137 mmol/L (136-145) 01/13/19 07:00 Potassium 4.4 mmol/L (3.5-5.1) 01/13/19 07:00 Chloride 102 mmol/L (98-107) 01/13/19 07:00 Carbon Dioxide 30 mmol/L (21-32) 01/13/19 07:00 Anion Gap 5 MMOL/L (8-16) L 01/13/19 07:00 BUN 16 mg/dL (7-18) 01/13/19 07:00 Creatinine 0.6 mg/dL (0.55-1.3) 01/13/19 07:00 Est GFR (CKD-EPI)AfAm 137.80 01/13/19 07:00 Est GFR (CKD-EPI)NonAf 118.89 01/13/19 07:00 Random Glucose 104 mg/dL (74-106) 01/13/19 07:00 Calcium 9.2 mg/dL (8.5-10.1) 01/13/19 07:00 Total Bilirubin 0.7 mg/dL (0.2-1) 01/13/19 07:00 AST 24 U/L (15-37) 01/13/19 07:00 ALT 33 U/L (13-61) 01/13/19 07:00 Alkaline Phosphatase 66 U/L (45-117) 01/13/19 07:00 Total Protein 6.3 g/dl (6.4-8.2) L 01/13/19 07:00 Albumin 3.4 g/dl (3.4-5.0) 01/13/19 07:00 Urine Color Yellow 01/13/19 00:00 Urine Appearance Clear 01/13/19 00:00 Urine pH 8.0 (5.0-8.0) D 01/13/19 00:00 Ur Specific [place] 1.017 (1.010-1.035) 01/13/19 00:00 Urine Protein Negative (NEGATIVE) 01/13/19 00:00 Urine Glucose (UA) Negative (NEGATIVE) 01/13/19 00:00 Urine Ketones Negative (NEGATIVE) 01/13/19 00:00 Urine Blood Negative (NEGATIVE) 01/13/19 00:00 Urine Nitrite Negative (NEGATIVE) 01/13/19 00:00 Urine Bilirubin Negative (NEGATIVE) 01/13/19 00:00 Urine Urobilinogen 1.0 mg/dL (0.2-1.0) 01/13/19 00:00 Ur Leukocyte Esterase Negative (NEGATIVE) 01/13/19 00:00 lab noted encourage oral fluid Assessment: 01/13/19 10:30 alcohol withdrawal sx Plan: continue detox
[2019-01-13] MEDS: THIAMINE HCL 100 MG TABLET (FP) PO SCH (23:11)
[2019-01-14] MEDS: chlordiazePOXIDE HCL 25 MG CAPSULE PO SCH ×3 (06:12→17:15)
[2019-01-14] MEDS: NICOTINE 7 MG/24 HOURS TOPICAL PATCH TD SCH (10:15)
[2019-01-14] MEDS: PRENATAL VITAMINS W/ FOLIC ACID TABLET (FP) PO SCH (10:15)
--- NOTE | 2019-01-14 11:38 | PN ---
S CIWA - CIWA Score Nausea/Vomitin-Mild Nausea/No Vomiting Muscle Tremors: 2 Anxiety: 2 Agitation: 1-Slight > Activity Paroxysmal Sweats: 1-Minimal Palms Moist Orientation: 0-Oriented Tacttile Disturbances: 0-None Auditory Disturbances: 0-None Visual Disturbances: 0-None Headache: 0-None Present CIWA-Ar Total Score: 7 BHS Progress Note (SOAP) Subjective: feeling better today but tired preferring resting in bed Objective: 01/14/19 11:37 Vital Signs Temperature 97.9 F 01/14/19 09:39 Pulse Rate 63 01/14/19 09:39 Respiratory Rate 18 01/14/19 09:39 Blood Pressure 104/65 01/14/19 09:39 O2 Sat by Pulse Oximetry (%) Laboratory Last Values WBC 6.0 K/mm3 (4.0-10.0) 01/13/19 07:00 RBC 4.94 M/mm3 (4.00-5.60) 01/13/19 07:00 Hgb 15.1 GM/dL (11.7-16.9) 01/13/19 07:00 Hct 46.1 % (35.4-49) 01/13/19 07:00 MCV 93.2 fl (80-96) 01/13/19 07:00 MCH 30.7 pg (25.7-33.7) 01/13/19 07:00 MCHC 32.9 g/dl (32.0-35.9) 01/13/19 07:00 RDW 14.7 % (11.9-15.9) 01/13/19 07:00 Plt Count 234 K/MM3 (134-434) D 01/13/19 07:00 MPV 9.3 fl (7.5-11.1) 01/13/19 07:00 Sodium 137 mmol/L (136-145) 01/13/19 07:00 Potassium 4.4 mmol/L (3.5-5.1) 01/13/19 07:00 Chloride 102 mmol/L (98-107) 01/13/19 07:00 Carbon Dioxide 30 mmol/L (21-32) 01/13/19 07:00 Anion Gap 5 MMOL/L (8-16) L 01/13/19 07:00 BUN 16 mg/dL (7-18) 01/13/19 07:00 Creatinine 0.6 mg/dL (0.55-1.3) 01/13/19 07:00 Est GFR (CKD-EPI)AfAm 137.80 01/13/19 07:00 Est GFR (CKD-EPI)NonAf 118.89 01/13/19 07:00 Random Glucose 104 mg/dL (74-106) 01/13/19 07:00 Calcium 9.2 mg/dL (8.5-10.1) 01/13/19 07:00 Total Bilirubin 0.7 mg/dL (0.2-1) 01/13/19 07:00 AST 24 U/L (15-37) 01/13/19 07:00 ALT 33 U/L (13-61) 01/13/19 07:00 Alkaline Phosphatase 66 U/L (45-117) 01/13/19 07:00 Total Protein 6.3 g/dl (6.4-8.2) L 01/13/19 07:00 Albumin 3.4 g/dl (3.4-5.0) 01/13/19 07:00 Urine Color Yellow 01/13/19 00:00 Urine Appearance Clear 01/13/19 00:00 Urine pH 8.0 (5.0-8.0) D 01/13/19 00:00 Ur Specific [place] 1.017 (1.010-1.035) 01/13/19 00:00 Urine Protein Negative (NEGATIVE) 01/13/19 00:00 Urine Glucose (UA) Negative (NEGATIVE) 01/13/19 00:00 Urine Ketones Negative (NEGATIVE) 01/13/19 00:00 Urine Blood Negative (NEGATIVE) 01/13/19 00:00 Urine Nitrite Negative (NEGATIVE) 01/13/19 00:00 Urine Bilirubin Negative (NEGATIVE) 01/13/19 00:00 Urine Urobilinogen 1.0 mg/dL (0.2-1.0) 01/13/19 00:00 Ur Leukocyte Esterase Negative (NEGATIVE) 01/13/19 00:00 RPR Titer Nonreactive (NONREACTIVE) 01/13/19 07:00 lab noted Assessment: 01/14/19 11:41 alcohol withdrawal sx Plan: continue detox
[2019-01-14 18:49] VITALS: BP 119/76; PULSE 83; TEMP 96.6
--- NOTE | 2019-01-14 22:42 | PN ---
[facility] Progress Note Note: Met w/ patient who insists on signing out AMA. States "I want a drink". Alert and oriented. Vital Signs 01/14/19 01/14/19 17:36 18:48 Temperature 98.5 F 96.6 F L Pulse Rate 69 83 Respiratory 18 20 Rate Blood Pressure 87/53 L 119/76 Patient w/ gross tremors of hands but gait is steady w/ use of own cane. Laboratory Last Values WBC 6.0 K/mm3 (4.0-10.0) 01/13/19 07:00 RBC 4.94 M/mm3 (4.00-5.60) 01/13/19 07:00 Hgb 15.1 GM/dL (11.7-16.9) 01/13/19 07:00 Hct 46.1 % (35.4-49) 01/13/19 07:00 MCV 93.2 fl (80-96) 01/13/19 07:00 MCH 30.7 pg (25.7-33.7) 01/13/19 07:00 MCHC 32.9 g/dl (32.0-35.9) 01/13/19 07:00 RDW 14.7 % (11.9-15.9) 01/13/19 07:00 Plt Count 234 K/MM3 (134-434) D 01/13/19 07:00 MPV 9.3 fl (7.5-11.1) 01/13/19 07:00 Sodium 137 mmol/L (136-145) 01/13/19 07:00 Potassium 4.4 mmol/L (3.5-5.1) 01/13/19 07:00 Chloride 102 mmol/L (98-107) 01/13/19 07:00 Carbon Dioxide 30 mmol/L (21-32) 01/13/19 07:00 Anion Gap 5 MMOL/L (8-16) L 01/13/19 07:00 BUN 16 mg/dL (7-18) 01/13/19 07:00 Creatinine 0.6 mg/dL (0.55-1.3) 01/13/19 07:00 Est GFR (CKD-EPI)AfAm 137.80 01/13/19 07:00 Est GFR (CKD-EPI)NonAf 118.89 01/13/19 07:00 Random Glucose 104 mg/dL (74-106) 01/13/19 07:00 Calcium 9.2 mg/dL (8.5-10.1) 01/13/19 07:00 Total Bilirubin 0.7 mg/dL (0.2-1) 01/13/19 07:00 AST 24 U/L (15-37) 01/13/19 07:00 ALT 33 U/L (13-61) 01/13/19 07:00 Alkaline Phosphatase 66 U/L (45-117) 01/13/19 07:00 Total Protein 6.3 g/dl (6.4-8.2) L 01/13/19 07:00 Albumin 3.4 g/dl (3.4-5.0) 01/13/19 07:00 Urine Color Yellow 01/13/19 00:00 Urine Appearance Clear 01/13/19 00:00 Urine pH 8.0 (5.0-8.0) D 01/13/19 00:00 Ur Specific [place] 1.017 (1.010-1.035) 01/13/19 00:00 Urine Protein Negative (NEGATIVE) 01/13/19 00:00 Urine Glucose (UA) Negative (NEGATIVE) 01/13/19 00:00 Urine Ketones Negative (NEGATIVE) 01/13/19 00:00 Urine Blood Negative (NEGATIVE) 01/13/19 00:00 Urine Nitrite Negative (NEGATIVE) 01/13/19 00:00 Urine Bilirubin Negative (NEGATIVE) 01/13/19 00:00 Urine Urobilinogen 1.0 mg/dL (0.2-1.0) 01/13/19 00:00 Ur Leukocyte Esterase Negative (NEGATIVE) 01/13/19 00:00 RPR Titer Nonreactive (NONREACTIVE) 01/13/19 07:00 LABS REVIEWED. Reviewed risks of continued drinking and benefits of remaining in treatment. Unable to convince patient to stay. Patient left AMA
--- NOTE | 2019-01-14 22:49 | DS ---
[facility] Detox Discharge Summary Admission Date: 01/12/19 Discharge Date: 01/14/19 - History Present History: Alcohol Dependence, Cocaine Dependence Additional Comments: Admitted with alcohol withdrawal. - Physical Exam Results Vital Signs: Vital Signs Temperature 96.6 F L 01/14/19 18:48 Pulse Rate 83 01/14/19 18:48 Respiratory Rate 20 01/14/19 18:48 Blood Pressure 119/76 01/14/19 18:48 O2 Sat by Pulse Oximetry (%) Pertinent Admission Physical Exam Findings: Admitted in alcohol withdrawal and sent to detox. Hx: Asthma, Chronic back pain, venus knee pain, Uses cane to ambulate Laboratory Last Values WBC 6.0 K/mm3 (4.0-10.0) 01/13/19 07:00 RBC 4.94 M/mm3 (4.00-5.60) 01/13/19 07:00 Hgb 15.1 GM/dL (11.7-16.9) 01/13/19 07:00 Hct 46.1 % (35.4-49) 01/13/19 07:00 MCV 93.2 fl (80-96) 01/13/19 07:00 MCH 30.7 pg (25.7-33.7) 01/13/19 07:00 MCHC 32.9 g/dl (32.0-35.9) 01/13/19 07:00 RDW 14.7 % (11.9-15.9) 01/13/19 07:00 Plt Count 234 K/MM3 (134-434) D 01/13/19 07:00 MPV 9.3 fl (7.5-11.1) 01/13/19 07:00 Sodium 137 mmol/L (136-145) 01/13/19 07:00 Potassium 4.4 mmol/L (3.5-5.1) 01/13/19 07:00 Chloride 102 mmol/L (98-107) 01/13/19 07:00 Carbon Dioxide 30 mmol/L (21-32) 01/13/19 07:00 Anion Gap 5 MMOL/L (8-16) L 01/13/19 07:00 BUN 16 mg/dL (7-18) 01/13/19 07:00 Creatinine 0.6 mg/dL (0.55-1.3) 01/13/19 07:00 Est GFR (CKD-EPI)AfAm 137.80 01/13/19 07:00 Est GFR (CKD-EPI)NonAf 118.89 01/13/19 07:00 Random Glucose 104 mg/dL (74-106) 01/13/19 07:00 Calcium 9.2 mg/dL (8.5-10.1) 01/13/19 07:00 Total Bilirubin 0.7 mg/dL (0.2-1) 01/13/19 07:00 AST 24 U/L (15-37) 01/13/19 07:00 ALT 33 U/L (13-61) 01/13/19 07:00 Alkaline Phosphatase 66 U/L (45-117) 01/13/19 07:00 Total Protein 6.3 g/dl (6.4-8.2) L 01/13/19 07:00 Albumin 3.4 g/dl (3.4-5.0) 01/13/19 07:00 Urine Color Yellow 01/13/19 00:00 Urine Appearance Clear 01/13/19 00:00 Urine pH 8.0 (5.0-8.0) D 01/13/19 00:00 Ur Specific [place] 1.017 (1.010-1.035) 01/13/19 00:00 Urine Protein Negative (NEGATIVE) 01/13/19 00:00 Urine Glucose (UA) Negative (NEGATIVE) 01/13/19 00:00 Urine Ketones Negative (NEGATIVE) 01/13/19 00:00 Urine Blood Negative (NEGATIVE) 01/13/19 00:00 Urine Nitrite Negative (NEGATIVE) 01/13/19 00:00 Urine Bilirubin Negative (NEGATIVE) 01/13/19 00:00 Urine Urobilinogen 1.0 mg/dL (0.2-1.0) 01/13/19 00:00 Ur Leukocyte Esterase Negative (NEGATIVE) 01/13/19 00:00 RPR Titer Nonreactive (NONREACTIVE) 01/13/19 07:00 Labs reviewed. - Treatment Hospital Course: Detox Protocol Followed (Did not complete protocol.) - Medication Discharge Medications: Ambulatory Orders Albuterol Sulfate Inhaler - [Ventolin HFA Inhaler -] 2 puff PO QID PRN 01/12/19 metFORMIN HCL [Metformin HCl] 500 mg PO BID 01/12/19 - Diagnosis (1) Alcohol dependence with uncomplicated withdrawal Status: Acute (2) Nicotine dependence Status: Chronic Qualifiers: Nicotine product type: cigarettes Substance use status: uncomplicated Qualified Code(s): F17.210 - Nicotine dependence, cigarettes, uncomplicated - AMA Did Patient Leave Against Medical Advice: Yes (Patient refused to stay despite encouragement)
[2019-01-14] MEDS ORDERED: chlordiazePOXIDE HCL 10 MG CAPSULE PO SCH (23:00)
[2019-01-14] MEDS ORDERED: chlordiazePOXIDE HCL 10 MG CAPSULE PO PRN (23:00)
[2019-01-15] MEDS ORDERED: chlordiazePOXIDE HCL 10 MG CAPSULE PO SCH (23:00)
== END 2019-01-14 18:47 | disposition left against medical advice (07) | DRG 770 ==
LOC: YASAS 14:15 → Y3N 18:33
PROVIDERS: ADMIT Surgery; ATTEND Surgery
PROC: HZ2ZZZZ Detoxification Services for Substance Abuse Treatment (ICD-10-PCS; principal; 2019-01-12)
DX: F10.230 Alcohol dependence with withdrawal, uncomplicated (principal); F17.210 Nicotine dependence, cigarettes, uncomplicated; J45.909 Unspecified asthma, uncomplicated; M54.9 Dorsalgia, unspecified; Z59.0 Homelessness
CPT/HCPCS: 36415; 80053; 81003; 85027; 86593

== ENCOUNTER 2019-02-19 08:20 | Inpatient (IN) | payer SELFPAY ==
[2019-02-19 09:54] VITALS: BMI 21.2
--- NOTE | 2019-02-19 10:49 | HP ---
CIWA Score Nausea/Vomitin Muscle Tremors: 7-Severe,w/o Arm Extended Anxiety: 4-Mod. Anxious/Guarded Agitation: 4-Moderately Restless Paroxysmal Sweats: No Perspiration Orientation: 1-Uncertain about Date Tacttile Disturbances: 2-Mild Itch/Numbness/Burn Auditory Disturbances: 0-None Visual Disturbances: 2-Mild Sensitivity Headache: 0-None Present CIWA-Ar Total Score: 23 - Admission Criteria OASAS Guidelines: Admission for Medically Managed Detox: Requires at least one of the followin. CIWA greater than 12 2. Seizures within the past 24 hours 3. Delirium tremens within the past 24 hours 4. Hallucinations within the past 24 hours 5. Acute intervention needed for co occurring medical disorder 6. Acute intervention needed for co occurring psychiatric disorder 7. Severe withdrawal that cannot be handled at a lower level of care (continued vomiting, continued diarrhea, abnormal vital signs) requiring intravenous medication and/or fluids 8. Admission ROS S - HPI Allergies/Adverse Reactions: Allergies Allergy/AdvReac Type Severity Reaction Status Date / Time Penicillins Allergy Verified 02/19/19 09:51 History of Present Illness: pt here requesting detox from etoh use , reports 1 l vodka/day since 6 mo ago , prior to which he was not drinking , started while on vacation in [place] , progressively increased since . first age of use 13 , sober since 2 years ago until 6 mo ago when he relapsed , current symptoms as above . pt reports he was at [facility] today and was not seen , does not have d/c paperwork , utox + bzo tobacco : occasional pmhx / pshx : umbil hernia , chronic LBP using cane for stability and ambulation Exam Limitations: Clinical Condition, Intoxication - Ebola screening Have you traveled outside of the country in the last 21 days: No Have you had contact with anyone from an Ebola affected area: No - Review of Systems Constitutional: See HPI, Loss of Appetite EENT: reports: See HPI, Other (reading glasses) Respiratory: reports: No Symptoms reported Cardiac: reports: No Symptoms Reported GI: reports: No Symptoms Reported : reports: No Symptoms Reported Musculoskeletal: reports: Back Pain (chronic) Integumentary: reports: No Symptoms Reported Neuro: reports: Tremors, Unsteady Gait Endocrine: reports: No Symptoms Reported Psychiatric: reports: Orientated x3, Agitated, Anxious, Disorientated Patient History - Patient Medical History Hx Anemia: No Hx Asthma: Yes Hx Chronic Obstructive Pulmonary Disease (COPD): No Hx Cancer: No Hx Cardiac Disorders: No Hx Congestive Heart Failure: No Hx Hypertension: No Hx Hypercholesterolemia: No Hx Pacemaker: No HX Cerebrovascular Accident: No Hx Seizures: Yes Hx Dementia: No Hx Diabetes: Yes Hx Gastrointestinal Disorders: Yes Hx Liver Disease: No Hx Genitourinary Disorders: No Hx Sexually Transmitted Disorders: No Hx Renal Disease (ESRD): No Hx Thyroid Disease: No Hx Human Immunodeficiency Virus (HIV): No Hx Hepatitis C: Yes (TX'ED) Hx Depression: Yes Hx Suicide Attempt: No Hx Bipolar Disorder: No Hx Schizophrenia: No - Patient Surgical History Past Surgical History: Yes Hx Neurologic Surgery: No Hx Cataract Extraction: Yes (2010) Hx Cardiac Surgery: No Hx Lung Surgery: No Hx Breast Surgery: No Hx Breast Biopsy: No Hx Abdominal Surgery: No Hx Appendectomy: No Hx Cholecystectomy: No Hx Genitourinary Surgery: No Hx Orthopedic Surgery: No Other Surgical History: ABD HERNIA REPAIR Anesthesia Reaction: No - PPD History Date: 01/14/19 Results: 0MM - Smoking Cessation Smoking history: Current some day smoker Have you smoked in the past 12 months: Yes Aproximately how many cigarettes per day: 2 Cigars Per Day: 0 Hx Chewing Tobacco Use: No Initiated information on smoking cessation: No - Substances abused Alcohol Substance route: Oral Frequency: Daily Amount used: 1 LITER VODKA Age of first use: 11 Date of last use: 02/18/19 Cocaine Substance route: Inhalation Frequency: 3-6 times per week Amount used: 1 BAG Age of first use: 16 Date of last use: 01/29/19 Family Disease History - Family Disease History Family Disease History: Other: Father (SUICIDE/ ETOH DEP) Admission Physical Exam BHS - Vital Signs Vital Signs: Vital Signs - 24 hr 02/19/19 09:52 Temperature 97.1 F L Pulse Rate 94 H Respiratory 20 Rate Blood Pressure 127/78 - Physical General Appearance: Yes: Disheveled, Alcohol on Breath, Intoxicated, Tremorous, Anxious HEENTM: Yes: EOMI, Normocephalic, Muffled/Hoarse Voice, Other (conjunctival injection bilateral) Respiratory: Yes: Chest Non-Tender, No Respiratory Distress, No Accessory Muscle Use Neck: Yes: No masses,lesions,Nodules, Trachea in good position Cardiology: Yes: Regular Rhythm, Regular Rate, S1, S2, Tachycardia Abdominal: Yes: Non Tender, Soft Musculoskeletal: Yes: Back pain (chronic , using cane for stability and ambulation) Extremities: Yes: Non-Tender, Pedal Edema (bilateral to mid- calf) Neurological: Yes: Alert, Motor Strength 5/5 Integumentary: Yes: Warm, Erythema, Rash (posterior thorax macular no d/c pt reports pruritus , superficial excoriation from scratching) - Diagnostic (1) Alcohol dependence with uncomplicated withdrawal Current Visit: Yes Status: Acute Breathalyzer - Breathalyzer Breathalyzer: 0.021 Urine Drug Screen - Test Device Lot number: [id number] Expiration date: 10/29/20 - Control Is test valid?: Yes - Results Drug screen NEGATIVE: No Urine drug screen results: BZO-Benzodiazepines Inpatient Rehab Admission - Rehab Decision to Admit Inpatient rehab admission?: No
[2019-02-19] MEDS ORDERED: IBUPROFEN 400 MG TABLET (FP) PO PRN (11:06)
[2019-02-19] MEDS ORDERED: MAGNESIUM CITRATE 300 ML BOTTLE PO PRN (11:06)
[2019-02-19] MEDS ORDERED: MENTHOL/PHENOL 1 EACH UD MM PRN (11:06)
[2019-02-19] MEDS ORDERED: BISMUTH SUBSALICYLATE 262 MG/15 ML BTL PO PRN (11:06)
[2019-02-19] MEDS ORDERED: MAG HYDROX/AL HYDROX/SIMETH 30 ML UNIT-DOSE CUP PO PRN (11:06)
[2019-02-19] MEDS ORDERED: hydrOXYzine PAMOATE 25 MG CAPSULE (FP) PO PRN (11:06)
[2019-02-19] MEDS ORDERED: ACETAMINOPHEN 325 MG TABLET (FP) PO PRN ×2 (11:06)
[2019-02-19] MEDS ORDERED: MAGNESIUM HYDROX 2400MG/30ML ORAL SUSPENSION 30 ML CUP PO PRN (11:06)
[2019-02-19] MEDS ORDERED: chlordiazePOXIDE HCL 25 MG CAPSULE PO PRN (11:10)
[2019-02-19] MEDS ORDERED: CALAMINE 8% TOPICAL LOTION 177 ML BOTTLE TP PRN (11:37)
[2019-02-19] MEDS: chlordiazePOXIDE HCL 25 MG CAPSULE PO SCH ×3 (12:57→23:07)
[2019-02-19 16:04] LABS: HEMATOCRIT 41.5 % (35.4-49); HEMOGLOBIN 13.8 GM/dL (11.7-16.9); MCH 31.2 pg (25.7-33.7); MCHC 33.2 g/dl (32.0-35.9); MEAN CELL VOLUME 93.9 fl (80-96); MEAN PLT VOLUME 9.5 fl (7.5-11.1); PLATELET COUNT 178 K/MM3 (134-434); RBC 4.42 M/mm3 (4.00-5.60); RDW 14.5 % (11.9-15.9); WHITE BLOOD COUNT 4.7 K/mm3 (4.0-10.0)
[2019-02-19 16:22] LABS: ALBUMIN 3.8 g/dl (3.4-5.0); BILIRUBIN,TOTAL 0.5 mg/dL (0.2-1); BLOOD UREA NITROGEN 10.9 mg/dL (7-18); CALCIUM 8.5 mg/dL (8.5-10.1); CREATININE 0.6 mg/dL (0.55-1.3); POTASSIUM 4.1 mmol/L (3.5-5.1); TOT PROT 6.9 g/dl (6.4-8.2)
[2019-02-19] MEDS: THIAMINE HCL 100 MG TABLET (FP) PO SCH (23:06)
[2019-02-20] MEDS: chlordiazePOXIDE HCL 25 MG CAPSULE PO SCH ×4 (05:30→22:33)
--- NOTE | 2019-02-20 09:32 | PN ---
S CIWA - CIWA Score Nausea/Vomitin-No Nausea/No Vomiting Muscle Tremors: 3 Anxiety: 2 Agitation: 2 Paroxysmal Sweats: 3 Orientation: 0-Oriented Tacttile Disturbances: 1-Very Mild Itch/Numbness Auditory Disturbances: 0-None Visual Disturbances: 0-None Headache: 2-Mild CIWA-Ar Total Score: 13 S Progress Note (SOAP) Subjective: c/o shakes, sweats, headache, and irritability. Objective: 02/20/19 09:31 Vital Signs 02/20/19 02/20/19 03:30 06:20 Temperature 98.4 F Pulse Rate 60 Respiratory 18 18 Rate Blood Pressure 119/75 Lab Results WBC 4.7 K/mm3 (4.0-10.0) 02/19/19 12:35 RBC 4.42 M/mm3 (4.00-5.60) 02/19/19 12:35 Hgb 13.8 GM/dL (11.7-16.9) 02/19/19 12:35 Hct 41.5 % (35.4-49) 02/19/19 12:35 MCV 93.9 fl (80-96) 02/19/19 12:35 MCHC 33.2 g/dl (32.0-35.9) 02/19/19 12:35 RDW 14.5 % (11.9-15.9) 02/19/19 12:35 Plt Count 178 K/MM3 (134-434) D 02/19/19 12:35 Sodium 140 mmol/L (136-145) 02/19/19 12:35 Potassium 4.1 mmol/L (3.5-5.1) 02/19/19 12:35 Chloride 105 mmol/L (98-107) 02/19/19 12:35 Carbon Dioxide 29 mmol/L (21-32) 02/19/19 12:35 Anion Gap 6 MMOL/L (8-16) L 02/19/19 12:35 BUN 10.9 mg/dL (7-18) 02/19/19 12:35 Creatinine 0.6 mg/dL (0.55-1.3) 02/19/19 12:35 Random Glucose 85 mg/dL (74-106) 02/19/19 12:35 Calcium 8.5 mg/dL (8.5-10.1) 02/19/19 12:35 Labs noted. Assessment: 02/20/19 09:31 AOX3, in no acute distress. Full rom, ambulates in the unit. withdrawal signs Plan: continue detox. increase fluids.
[2019-02-20] MEDS: PRENATAL VITAMINS W/ FOLIC ACID TABLET (FP) PO SCH (10:16)
[2019-02-20] MEDS: MELATONIN 5 MG TABLETS PO PRN (22:33)
[2019-02-20] MEDS: THIAMINE HCL 100 MG TABLET (FP) PO SCH (22:33)
[2019-02-21] MEDS: chlordiazePOXIDE HCL 25 MG CAPSULE PO SCH (07:05)
[2019-02-21] MEDS: PRENATAL VITAMINS W/ FOLIC ACID TABLET (FP) PO SCH (10:13)
[2019-02-21] MEDS: chlordiazePOXIDE HCL 10 MG CAPSULE PO SCH ×3 (10:14→22:11)
[2019-02-21] MEDS ORDERED: chlordiazePOXIDE HCL 10 MG CAPSULE PO PRN (11:00)
--- NOTE | 2019-02-21 11:27 | PN ---
S CIWA - CIWA Score Nausea/Vomitin-Mild Nausea/No Vomiting Muscle Tremors: 3 Anxiety: 3 Agitation: 2 Paroxysmal Sweats: 1-Minimal Palms Moist Orientation: 0-Oriented Tacttile Disturbances: 0-None Auditory Disturbances: 0-None Visual Disturbances: 1-Very Mild Sensitivity Headache: 0-None Present CIWA-Ar Total Score: 11 S Progress Note (SOAP) Subjective: GENERALIZED MYALGIAS, POOR SLEEP, SHAKINESS Objective: 02/21/19 11:26 Vital Signs - 24 hr 02/20/19 02/20/19 02/20/19 13:33 17:32 21:49 Temperature 98.2 F 98.2 F 97.5 F L Pulse Rate 74 59 L 65 Respiratory 18 17 18 Rate Blood Pressure 119/78 110/70 106/86 02/21/19 02/21/19 02/21/19 00:30 03:30 06:23 Temperature 97.1 F L Pulse Rate 57 L Respiratory 18 18 18 Rate Blood Pressure 96/59 L 02/21/19 09:14 Temperature 97.0 F L Pulse Rate 64 Respiratory 18 Rate Blood Pressure 110/77 Laboratory Tests 02/19/19 02/19/19 02/19/19 11:28 12:35 12:35 WBC 4.7 RBC 4.42 Hgb 13.8 Hct 41.5 MCV 93.9 MCH 31.2 MCHC 33.2 RDW 14.5 Plt Count 178 D MPV 9.5 Sodium 140 Potassium 4.1 Chloride 105 Carbon Dioxide 29 Anion Gap 6 L BUN 10.9 Creatinine 0.6 Est GFR (CKD-EPI)AfAm 137.80 Est GFR (CKD-EPI)NonAf 118.89 POC Glucometer 84 Random Glucose 85 Calcium 8.5 Total Bilirubin 0.5 AST 22 ALT 25 Alkaline Phosphatase 66 Total Protein 6.9 Albumin 3.8 RPR Titer HIV 1&2 Antibody Screen HIV P24 Antigen 02/19/19 02/19/19 02/20/19 12:35 12:35 07:04 WBC RBC Hgb Hct MCV MCH MCHC RDW Plt Count MPV Sodium Potassium Chloride Carbon Dioxide Anion Gap BUN Creatinine Est GFR (CKD-EPI)AfAm Est GFR (CKD-EPI)NonAf POC Glucometer 106 Random Glucose Calcium Total Bilirubin AST ALT Alkaline Phosphatase Total Protein Albumin RPR Titer Nonreactive HIV 1&2 Antibody Screen Negative HIV P24 Antigen Negative 02/21/19 06:30 WBC RBC Hgb Hct MCV MCH MCHC RDW Plt Count MPV Sodium Potassium Chloride Carbon Dioxide Anion Gap BUN Creatinine Est GFR (CKD-EPI)AfAm Est GFR (CKD-EPI)NonAf POC Glucometer 116 Random Glucose Calcium Total Bilirubin AST ALT Alkaline Phosphatase Total Protein Albumin RPR Titer HIV 1&2 Antibody Screen HIV P24 Antigen 02/21/19 11:27 ALERT ORINETED AND AMBULATING Assessment: 02/21/19 11:26ACUTE WITHDRAWAL Plan: CONTINUE DETOX PROTOCOL
[2019-02-21] MEDS: THIAMINE HCL 100 MG TABLET (FP) PO SCH (22:11)
[2019-02-21] MEDS: MELATONIN 5 MG TABLETS PO PRN (22:11)
[2019-02-22] MEDS: chlordiazePOXIDE HCL 10 MG CAPSULE PO SCH ×3 (06:30→22:09)
[2019-02-22] MEDS: PRENATAL VITAMINS W/ FOLIC ACID TABLET (FP) PO SCH (10:28)
--- NOTE | 2019-02-22 13:57 | PN ---
S CIWA - CIWA Score Nausea/Vomitin-No Nausea/No Vomiting Muscle Tremors: None Anxiety: 2 Agitation: 2 Paroxysmal Sweats: No Perspiration Orientation: 0-Oriented Tacttile Disturbances: 0-None Auditory Disturbances: 0-None Visual Disturbances: 2-Mild Sensitivity Headache: 0-None Present CIWA-Ar Total Score: 6 BHS Progress Note (SOAP) Subjective: Anxious, Body Aches. Objective: PATIENT A & O X 3, OBSERVED AMBULATING ON UNIT UNASSISTED. IN NO ACUTE DISTRESS. 02/22/19 13:54 Vital Signs Temperature 98.3 F 02/22/19 13:16 Pulse Rate 74 02/22/19 13:16 Respiratory Rate 18 02/22/19 13:16 Blood Pressure 111/76 02/22/19 13:16 O2 Sat by Pulse Oximetry (%) Laboratory Tests 02/19/19 02/19/19 02/19/19 11:28 12:35 12:35 WBC 4.7 RBC 4.42 Hgb 13.8 Hct 41.5 MCV 93.9 MCH 31.2 MCHC 33.2 RDW 14.5 Plt Count 178 D MPV 9.5 Sodium 140 Potassium 4.1 Chloride 105 Carbon Dioxide 29 Anion Gap 6 L BUN 10.9 Creatinine 0.6 Est GFR (CKD-EPI)AfAm 137.80 Est GFR (CKD-EPI)NonAf 118.89 POC Glucometer 84 Random Glucose 85 Calcium 8.5 Total Bilirubin 0.5 AST 22 ALT 25 Alkaline Phosphatase 66 Total Protein 6.9 Albumin 3.8 RPR Titer HIV 1&2 Antibody Screen HIV P24 Antigen 02/19/19 02/19/19 02/20/19 12:35 12:35 07:04 WBC RBC Hgb Hct MCV MCH MCHC RDW Plt Count MPV Sodium Potassium Chloride Carbon Dioxide Anion Gap BUN Creatinine Est GFR (CKD-EPI)AfAm Est GFR (CKD-EPI)NonAf POC Glucometer 106 Random Glucose Calcium Total Bilirubin AST ALT Alkaline Phosphatase Total Protein Albumin RPR Titer Nonreactive HIV 1&2 Antibody Screen Negative HIV P24 Antigen Negative 02/21/19 02/22/19 06:30 07:47 WBC RBC Hgb Hct MCV MCH MCHC RDW Plt Count MPV Sodium Potassium Chloride Carbon Dioxide Anion Gap BUN Creatinine Est GFR (CKD-EPI)AfAm Est GFR (CKD-EPI)NonAf POC Glucometer 116 112 Random Glucose Calcium Total Bilirubin AST ALT Alkaline Phosphatase Total Protein Albumin RPR Titer HIV 1&2 Antibody Screen HIV P24 Antigen LABS NOTED. Assessment: 02/22/19 13:55 WITHDRAWAL SYMPTOMS. Plan: CONTINUE DETOX. PATIENT SCHEDULED FOR D/C TOMORROW.
[2019-02-22] MEDS: MELATONIN 5 MG TABLETS PO PRN (22:09)
[2019-02-22] MEDS: THIAMINE HCL 100 MG TABLET (FP) PO SCH (22:09)
[2019-02-23 09:22] VITALS: BP 107/71; PULSE 68; TEMP 97.8
[2019-02-23] MEDS: PRENATAL VITAMINS W/ FOLIC ACID TABLET (FP) PO SCH (10:07)
[2019-02-23] MEDS: chlordiazePOXIDE HCL 10 MG CAPSULE PO SCH (10:12)
--- NOTE | 2019-02-23 16:42 | DS ---
[facility] Detox Discharge Summary Admission Date: 02/19/19 Discharge Date: 02/23/19 - History Present History: Alcohol Dependence Additional Comments: PATIENT GOING TO [facility] ([place], [place]) FOR AFTERCARE. PATIENT WAS DISCHARGED FORM DETOX UNIT IN STABLE MEDICAL CONDITION. Pertinent Past History: Asthma, History Of Chronic Lower Back Pain, History Of Umbilical Hernia, Depression, DM, History Of Seizures, Hep C (Treated). - Physical Exam Results Vital Signs: Vital Signs Temperature 97.8 F 02/23/19 09:22 Pulse Rate 68 02/23/19 09:22 Respiratory Rate 17 02/23/19 09:22 Blood Pressure 107/71 02/23/19 09:22 O2 Sat by Pulse Oximetry (%) Pertinent Admission Physical Exam Findings: WITHDRAWAL SYMPTOMS. Laboratory Tests 02/19/19 02/19/19 02/19/19 11:28 12:35 12:35 WBC 4.7 RBC 4.42 Hgb 13.8 Hct 41.5 MCV 93.9 MCH 31.2 MCHC 33.2 RDW 14.5 Plt Count 178 D MPV 9.5 Sodium 140 Potassium 4.1 Chloride 105 Carbon Dioxide 29 Anion Gap 6 L BUN 10.9 Creatinine 0.6 Est GFR (CKD-EPI)AfAm 137.80 Est GFR (CKD-EPI)NonAf 118.89 POC Glucometer 84 Random Glucose 85 Calcium 8.5 Total Bilirubin 0.5 AST 22 ALT 25 Alkaline Phosphatase 66 Total Protein 6.9 Albumin 3.8 RPR Titer HIV 1&2 Antibody Screen HIV P24 Antigen 02/19/19 02/19/19 02/20/19 12:35 12:35 07:04 WBC RBC Hgb Hct MCV MCH MCHC RDW Plt Count MPV Sodium Potassium Chloride Carbon Dioxide Anion Gap BUN Creatinine Est GFR (CKD-EPI)AfAm Est GFR (CKD-EPI)NonAf POC Glucometer 106 Random Glucose Calcium Total Bilirubin AST ALT Alkaline Phosphatase Total Protein Albumin RPR Titer Nonreactive HIV 1&2 Antibody Screen Negative HIV P24 Antigen Negative 02/21/19 02/22/19 02/23/19 06:30 07:47 06:56 WBC RBC Hgb Hct MCV MCH MCHC RDW Plt Count MPV Sodium Potassium Chloride Carbon Dioxide Anion Gap BUN Creatinine Est GFR (CKD-EPI)AfAm Est GFR (CKD-EPI)NonAf POC Glucometer 116 112 117 Random Glucose Calcium Total Bilirubin AST ALT Alkaline Phosphatase Total Protein Albumin RPR Titer HIV 1&2 Antibody Screen HIV P24 Antigen LABS NOTED. - Treatment Hospital Course: Detox Protocol Followed, Detoxed Safely, Responded well, Discharged Condition Good, Rehab Referral Accepted Patient has Accepted a Rehab Referral to: [facility] ([place], [place] ). - Medication Discharge Medications: Ambulatory Orders Albuterol Sulfate Inhaler - [Ventolin HFA Inhaler -] 2 puff PO QID PRN 01/12/19 metFORMIN HCL [Metformin HCl] 500 mg PO BID 01/12/19 - Diagnosis (1) Alcohol dependence with uncomplicated withdrawal Status: Acute - AMA Did Patient Leave Against Medical Advice: No
== END 2019-02-23 10:55 | disposition home or self-care (01) | DRG 775 ==
LOC: YASAS 08:20 → Y3N 11:31
PROVIDERS: ADMIT Surgery; ATTEND Surgery
PROC: HZ2ZZZZ Detoxification Services for Substance Abuse Treatment (ICD-10-PCS; principal; 2019-02-19)
DX: F10.230 Alcohol dependence with withdrawal, uncomplicated (principal); F10.220 Alcohol dependence with intoxication, uncomplicated; F17.210 Nicotine dependence, cigarettes, uncomplicated; E11.9 Type 2 diabetes mellitus without complications; J45.909 Unspecified asthma, uncomplicated; R00.0 Tachycardia, unspecified; Z86.69 Personal history of other diseases of the nervous system and sense organs; Z88.0 Allergy status to penicillin; Z59.0 Homelessness
CPT/HCPCS: 36415; 80053; 82962; 85027; 86593; 87389

== ENCOUNTER 2019-06-10 09:47 | Inpatient (IN) | payer OTHER ==
[2019-06-10 11:13] VITALS: BMI 21.6
--- NOTE | 2019-06-10 16:02 | HP ---
CIWA Score Nausea/Vomitin-No Nausea/No Vomiting Muscle Tremors: 7-Severe,w/o Arm Extended Anxiety: 3 Agitation: 2 Paroxysmal Sweats: No Perspiration Orientation: 1-Uncertain about Date Tacttile Disturbances: 0-None Auditory Disturbances: 0-None Visual Disturbances: 0-None Headache: 0-None Present CIWA-Ar Total Score: 13 - Admission Criteria OASAS Guidelines: Admission for Medically Managed Detox: Requires at least one of the followin. CIWA greater than 12 2. Seizures within the past 24 hours 3. Delirium tremens within the past 24 hours 4. Hallucinations within the past 24 hours 5. Acute intervention needed for co occurring medical disorder 6. Acute intervention needed for co occurring psychiatric disorder 7. Severe withdrawal that cannot be handled at a lower level of care (continued vomiting, continued diarrhea, abnormal vital signs) requiring intravenous medication and/or fluids 8. Admitting History and Physical - Smoking History Smoking history: Current some day smoker Have you smoked in the past 12 months: Yes Aproximately how many cigarettes per day: 2 - Alcohol/Substance Use Hx Alcohol Use: Yes Admission ROS [facility] Allergies/Adverse Reactions: Allergies Allergy/AdvReac Type Severity Reaction Status Date / Time Penicillins Allergy Verified 06/10/19 11:07 History of Present Illness: pt here requesting detox from etoh use , reports 1.5 l vodka/day since 9 mo ago , prior to which he was not drinking , started while on vacation in [place] , relapsed after d/c from this facility , currently intoxicated FLORENCIA 0.116 . Pt is poor historian 2/2 intoxication . drowsy , awakened by verbal stimuli. ETOH first age of use 13 , sober since 2 years ago until 9 mo ago when he relapsed , current symptoms as above . utox + cocaine , reports use 1-2 bags not daily tobacco : occasional pmhx / pshx : umbil hernia , chronic LBP , no longer using cane . Exam Limitations: Clinical Condition, Intoxication - Ebola screening Have you traveled outside of the country in the last 21 days: No Have you had contact with anyone from an Ebola affected area: No Do you have a fever: No - Review of Systems Constitutional: Loss of Appetite EENT: reports: No Symptoms Reported Respiratory: reports: No Symptoms reported Cardiac: reports: No Symptoms Reported GI: reports: No Symptoms Reported : reports: No Symptoms Reported Musculoskeletal: reports: See HPI, Back Pain Integumentary: reports: No Symptoms Reported Neuro: reports: No Symptoms reported Endocrine: reports: No Symptoms Reported Psychiatric: reports: Orientated x3, Agitated, Anxious Patient History - Patient Medical History Hx Anemia: No Hx Asthma: Yes Hx Chronic Obstructive Pulmonary Disease (COPD): No Hx Cancer: No Hx Cardiac Disorders: No Hx Congestive Heart Failure: No Hx Hypertension: No Hx Hypercholesterolemia: No Hx Pacemaker: No HX Cerebrovascular Accident: No Hx Seizures: Yes Hx Dementia: No Hx Diabetes: Yes Hx Gastrointestinal Disorders: Yes Hx Liver Disease: No Hx Genitourinary Disorders: No Hx Sexually Transmitted Disorders: No Hx Renal Disease (ESRD): No Hx Thyroid Disease: No Hx Human Immunodeficiency Virus (HIV): No Hx Hepatitis C: Yes (TX'ED) Hx Depression: Yes Hx Suicide Attempt: No Hx Bipolar Disorder: No Hx Schizophrenia: No - Patient Surgical History Past Surgical History: Yes Hx Neurologic Surgery: No Hx Cataract Extraction: Yes (2010) Hx Cardiac Surgery: No Hx Lung Surgery: No Hx Breast Surgery: No Hx Breast Biopsy: No Hx Abdominal Surgery: No Hx Appendectomy: No Hx Cholecystectomy: No Hx Genitourinary Surgery: No Hx Orthopedic Surgery: No Other Surgical History: ABD HERNIA REPAIR Anesthesia Reaction: No - PPD History Date: 02/21/19 Results: 0MM - Smoking Cessation Smoking history: Current some day smoker Have you smoked in the past 12 months: Yes Aproximately how many cigarettes per day: 2 Cigars Per Day: 0 Hx Chewing Tobacco Use: No Initiated information on smoking cessation: No - Substances abused Alcohol Substance route: Oral Frequency: Daily Amount used: 1 LITER VODKA Age of first use: 11 Date of last use: 06/10/19 Cocaine Substance route: Inhalation Frequency: 3-6 times per week Amount used: 2 dime bags Age of first use: 16 Date of last use: 06/10/19 Admission Physical Exam BHS - Vital Signs Vital Signs: Vital Signs - 24 hr 06/10/19 06/10/19 11:07 11:28 Temperature 98.8 F 98.8 F Pulse Rate 88 88 Respiratory 16 16 Rate Blood Pressure 118/76 118/76 - Physical General Appearance: Yes: Disheveled, Severe Distress, Intoxicated, Tremorous, Anxious HEENTM: Yes: EOMI, Hearing grossly Normal, Normocephalic, Normal Voice Respiratory: Yes: Chest Non-Tender, Lungs Clear, Normal Breath Sounds, No Respiratory Distress, No Accessory Muscle Use Neck: Yes: No masses,lesions,Nodules, Trachea in good position Cardiology: Yes: Regular Rhythm, Regular Rate, S1, S2, Tachycardia Abdominal: Yes: Normal Bowel Sounds, Non Tender, Soft Musculoskeletal: Yes: Gait Steady Extremities: Yes: Normal Range of Motion, Non-Tender, Tremors Neurological: Yes: Fully Oriented, Alert, Motor Strength 5/5, Normal Mood/Affect Integumentary: Yes: Warm - Diagnostic (1) Alcohol dependence with uncomplicated withdrawal Current Visit: Yes Status: Acute (2) Nicotine dependence Current Visit: Yes Status: Chronic Qualifiers: Nicotine product type: cigarettes (3) Cocaine abuse, episodic use Current Visit: Yes Status: Chronic Breathalyzer - Breathalyzer Breathalyzer: 0.116 Urine Drug Screen - Test Device Lot number: [id number] Expiration date: 01/29/21 - Control Is test valid?: Yes - Results Drug screen NEGATIVE: No Urine drug screen results: GRACIE-Cocaine Inpatient Rehab Admission - Rehab Decision to Admit Inpatient rehab admission?: No
[2019-06-10] MEDS ORDERED: ACETAMINOPHEN 325 MG TABLET (FP) PO PRN ×2 (16:03)
[2019-06-10] MEDS ORDERED: MAG HYDROX/AL HYDROX/SIMETH 30 ML UNIT-DOSE CUP PO PRN (16:03)
[2019-06-10] MEDS ORDERED: MAGNESIUM HYDROX 2400MG/30ML ORAL SUSPENSION 30 ML CUP PO PRN (16:03)
[2019-06-10] MEDS ORDERED: MENTHOL/PHENOL 1 EACH UD MM PRN (16:03)
[2019-06-10] MEDS ORDERED: MELATONIN 5 MG TABLETS PO PRN (16:03)
[2019-06-10] MEDS ORDERED: BISMUTH SUBSALICYLATE 524 MG/30 ML UD PO PRN (16:03)
[2019-06-10] MEDS ORDERED: MAGNESIUM CITRATE 300 ML BOTTLE PO PRN (16:03)
[2019-06-10] MEDS ORDERED: chlordiazePOXIDE HCL 25 MG CAPSULE PO PRN (16:03)
[2019-06-10] MEDS ORDERED: hydrOXYzine PAMOATE 25 MG CAPSULE (FP) PO PRN (16:03)
[2019-06-10] MEDS: chlordiazePOXIDE HCL 25 MG CAPSULE PO SCH ×2 (17:33→22:37)
[2019-06-10] MEDS: THIAMINE HCL 100 MG TABLET (FP) PO SCH (22:37)
[2019-06-11] MEDS: chlordiazePOXIDE HCL 25 MG CAPSULE PO SCH ×4 (07:55→22:17)
[2019-06-11 10:10] LABS: HEMATOCRIT 46.3 % (35.4-49); HEMOGLOBIN 15.6 GM/dL (11.7-16.9); MCH 32.3 pg (25.7-33.7); MCHC 33.7 g/dl (32.0-35.9); MEAN PLT VOLUME 9.4 fl (7.5-11.1); PLATELET COUNT 163 K/MM3 (134-434); RBC 4.82 M/mm3 (4.00-5.60); RDW 15.2 % (11.9-15.9); WHITE BLOOD COUNT 3.8 K/mm3 (4.0-10.0)
[2019-06-11 10:24] LABS: ALBUMIN 3.7 g/dl (3.4-5.0); BILIRUBIN,TOTAL 1.4 mg/dL (0.2-1); BLOOD UREA NITROGEN 9.8 mg/dL (7-18); CALCIUM 8.7 mg/dL (8.5-10.1); CREATININE 0.7 mg/dL (0.55-1.3); POTASSIUM 3.9 mmol/L (3.5-5.1); TOT PROT 6.6 g/dl (6.4-8.2)
[2019-06-11] MEDS: PRENATAL VITAMINS W/ FOLIC ACID TABLET (FP) PO SCH (11:00)
[2019-06-11] MEDS ORDERED: FLU VACCINE QUAD 60 MCG/0.5 ML (MDV 19-20) IM ONE (12:00)
--- NOTE | 2019-06-11 12:24 | PN ---
S CIWA - CIWA Score Nausea/Vomitin Muscle Tremors: 2 Anxiety: 2 Agitation: 2 Paroxysmal Sweats: 2 Orientation: 0-Oriented Tacttile Disturbances: 2-Mild Itch/Numbness/Burn Auditory Disturbances: 0-None Visual Disturbances: 0-None Headache: 0-None Present CIWA-Ar Total Score: 12 BHS Progress Note (SOAP) Subjective: interrupted sleep, sweats, shakes Objective: 06/11/19 12:23 Vital Signs Temperature 97.6 F 06/11/19 09:28 Pulse Rate 69 06/11/19 09:28 Respiratory Rate 18 06/11/19 09:28 Blood Pressure 110/74 06/11/19 09:28 O2 Sat by Pulse Oximetry (%) Laboratory Tests 06/10/19 06/11/19 06/11/19 16:45 08:00 08:00 WBC 3.8 L RBC 4.82 Hgb 15.6 Hct 46.3 MCV 96.0 MCH 32.3 MCHC 33.7 RDW 15.2 Plt Count 163 MPV 9.4 Sodium 142 Potassium 3.9 Chloride 104 Carbon Dioxide 28 Anion Gap 10 BUN 9.8 Creatinine 0.7 Est GFR (CKD-EPI)AfAm 129.34 Est GFR (CKD-EPI)NonAf 111.59 POC Glucometer 163 Random Glucose 106 Calcium 8.7 Total Bilirubin 1.4 H AST 143 H ALT 120 H Alkaline Phosphatase 72 Total Protein 6.6 Albumin 3.7 pt aox3 in nad ambulating Assessment: 06/11/19 12:23 withdrawal sx's elevated transaminases dm - random glucose 103/ bhs 160 - no meds continue to monitor Plan: cont. detox increase fluids d/c tylenol repeat sgot/sgpt cont. bgm's
[2019-06-11] MEDS: THIAMINE HCL 100 MG TABLET (FP) PO SCH (22:17)
[2019-06-12] MEDS: chlordiazePOXIDE HCL 25 MG CAPSULE PO SCH ×2 (07:30→10:58)
[2019-06-12 09:09] VITALS: BP 108/68; PULSE 71; TEMP 98.1
[2019-06-12 10:19] LABS: SGOT/AST 139 U/L (15-37); SGPT/ALT 128 U/L (13-61)
[2019-06-12] MEDS: PRENATAL VITAMINS W/ FOLIC ACID TABLET (FP) PO SCH (10:58)
--- NOTE | 2019-06-12 12:24 | PN ---
[facility] CIWA - CIWA Score Nausea/Vomitin-No Nausea/No Vomiting Muscle Tremors: 3 Anxiety: 2 Agitation: 3 Paroxysmal Sweats: 2 Orientation: 0-Oriented Tacttile Disturbances: 0-None Auditory Disturbances: 0-None Visual Disturbances: 0-None Headache: 0-None Present CIWA-Ar Total Score: 10 S Progress Note (SOAP) Subjective: diarrhea sweats agitation Objective: 06/12/19 12:22 Vital Signs Temperature 98.1 F 06/12/19 09:08 Pulse Rate 71 06/12/19 09:08 Respiratory Rate 19 06/12/19 09:08 Blood Pressure 108/68 06/12/19 09:08 O2 Sat by Pulse Oximetry (%) Laboratory Tests 06/10/19 06/11/19 06/11/19 16:45 08:00 08:00 WBC 3.8 L RBC 4.82 Hgb 15.6 Hct 46.3 MCV 96.0 MCH 32.3 MCHC 33.7 RDW 15.2 Plt Count 163 MPV 9.4 Sodium 142 Potassium 3.9 Chloride 104 Carbon Dioxide 28 Anion Gap 10 BUN 9.8 Creatinine 0.7 Est GFR (CKD-EPI)AfAm 129.34 Est GFR (CKD-EPI)NonAf 111.59 POC Glucometer 163 Random Glucose 106 Calcium 8.7 Total Bilirubin 1.4 H AST 143 H ALT 120 H Alkaline Phosphatase 72 Total Protein 6.6 Albumin 3.7 RPR Titer 06/11/19 06/12/19 08:00 08:00 WBC RBC Hgb Hct MCV MCH MCHC RDW Plt Count MPV Sodium Potassium Chloride Carbon Dioxide Anion Gap BUN Creatinine Est GFR (CKD-EPI)AfAm Est GFR (CKD-EPI)NonAf POC Glucometer Random Glucose Calcium Total Bilirubin AST 139 H ALT 128 H Alkaline Phosphatase Total Protein Albumin RPR Titer Nonreactive labs noted ast/alt show some improvement aaox3 ambulating no acute distress Assessment: 06/12/19 12:23 withdrawals Plan: continue detox increase fluids
--- NOTE | 2019-06-12 13:54 | PN ---
[facility] Progress Note Note: pt states he wants to leave. He states this is not the place for him and wants to go home. Multi-disciplinary team encouraged pt to stay and complete his detox ; pt was explained about the risks of relapse, seizures, DTs, OD and or loss, however, pt chose to leave and signed out AMA.
--- NOTE | 2019-06-12 13:56 | DS ---
[facility] Detox Discharge Summary Admission Date: 06/10/19 - History Present History: Alcohol Dependence, Cocaine Dependence - Physical Exam Results Vital Signs: Vital Signs Temperature 98.1 F 06/12/19 09:08 Pulse Rate 71 06/12/19 09:08 Respiratory Rate 19 06/12/19 09:08 Blood Pressure 108/68 06/12/19 09:08 O2 Sat by Pulse Oximetry (%) Pertinent Admission Physical Exam Findings: pt arrived in withdrawals Vital Signs Temperature 98.1 F 06/12/19 09:08 Pulse Rate 71 06/12/19 09:08 Respiratory Rate 19 06/12/19 09:08 Blood Pressure 108/68 06/12/19 09:08 O2 Sat by Pulse Oximetry (%) Laboratory Tests 06/10/19 06/11/19 06/11/19 16:45 08:00 08:00 WBC 3.8 L RBC 4.82 Hgb 15.6 Hct 46.3 MCV 96.0 MCH 32.3 MCHC 33.7 RDW 15.2 Plt Count 163 MPV 9.4 Sodium 142 Potassium 3.9 Chloride 104 Carbon Dioxide 28 Anion Gap 10 BUN 9.8 Creatinine 0.7 Est GFR (CKD-EPI)AfAm 129.34 Est GFR (CKD-EPI)NonAf 111.59 POC Glucometer 163 Random Glucose 106 Calcium 8.7 Total Bilirubin 1.4 H AST 143 H ALT 120 H Alkaline Phosphatase 72 Total Protein 6.6 Albumin 3.7 RPR Titer 06/11/19 06/12/19 08:00 08:00 WBC RBC Hgb Hct MCV MCH MCHC RDW Plt Count MPV Sodium Potassium Chloride Carbon Dioxide Anion Gap BUN Creatinine Est GFR (CKD-EPI)AfAm Est GFR (CKD-EPI)NonAf POC Glucometer Random Glucose Calcium Total Bilirubin AST 139 H ALT 128 H Alkaline Phosphatase Total Protein Albumin RPR Titer Nonreactive pt chose to sign out AMA - Treatment Patient has Accepted a Rehab Referral to: referral provided - Diagnosis (1) Alcohol dependence with uncomplicated withdrawal Current Visit: Yes Status: Chronic (2) Cocaine abuse, episodic use Current Visit: Yes Status: Chronic (3) Nicotine dependence Current Visit: Yes Status: Chronic Qualifiers: Nicotine product type: cigarettes Substance use status: uncomplicated Qualified Code(s): F17.210 - Nicotine dependence, cigarettes, uncomplicated (4) Abrasion, right knee, initial encounter Current Visit: No Status: Acute Qualifiers: Encounter type: initial encounter Qualified Code(s): S80.211A - Abrasion, right knee, initial encounter (5) Drug-induced mood disorder Current Visit: No Status: Acute (6) Hypertension Current Visit: No Status: Acute Qualifiers: Hypertension type: essential hypertension Qualified Code(s): I10 - Essential (primary) hypertension (7) Left knee pain Current Visit: No Status: Acute (8) Swelling of right knee joint Current Visit: No Status: Acute (9) Type II diabetes mellitus Current Visit: No Status: Acute Qualifiers: Diabetes mellitus adjunct faculty for medical terminology insulin use: without detention use Diabetes mellitus complication status: without complication Qualified Code(s): E11.9 - Type 2 diabetes mellitus without complications (10) Weight loss Current Visit: No Status: Acute (11) Hepatitis C antibody test positive Current Visit: No Status: Chronic (12) Knee effusion, right Current Visit: No Status: Chronic (13) Weakness of right leg Current Visit: No Status: Chronic - AMA Did Patient Leave Against Medical Advice: Yes
[2019-06-13] MEDS ORDERED: chlordiazePOXIDE HCL 10 MG CAPSULE PO PRN
[2019-06-13] MEDS ORDERED: chlordiazePOXIDE HCL 10 MG CAPSULE PO SCH (05:00)
[2019-06-14] MEDS ORDERED: chlordiazePOXIDE HCL 10 MG CAPSULE PO SCH (05:00)
[2019-06-15] MEDS ORDERED: chlordiazePOXIDE HCL 10 MG CAPSULE PO ONE (05:00)
== END 2019-06-12 14:00 | disposition left against medical advice (07) | DRG 770 ==
LOC: YASAS 09:47 → Y6N 16:39
PROVIDERS: ADMIT Allergy & Immunology; ATTEND Allergy & Immunology
PROC: HZ2ZZZZ Detoxification Services for Substance Abuse Treatment (ICD-10-PCS; principal; 2019-06-10)
DX: F10.230 Alcohol dependence with withdrawal, uncomplicated (principal); F14.10 Cocaine abuse, uncomplicated; F17.210 Nicotine dependence, cigarettes, uncomplicated; F19.24 Other psychoactive substance dependence with psychoactive substance-induced mood disorder; I10 Essential (primary) hypertension; E11.9 Type 2 diabetes mellitus without complications; Z79.84 Long term (current) use of oral hypoglycemic drugs; R29.898 Other symptoms and signs involving the musculoskeletal system; M25.461 Effusion, right knee; M25.562 Pain in left knee; R63.4 Abnormal weight loss; Z68.31 Body mass index [BMI] 31.0-31.9, adult; Z59.0 Homelessness
CPT/HCPCS: 36415; 80053; 82962; 84450; 84460; 85027; 86593

== ENCOUNTER 2019-07-27 12:13 | Inpatient (IN) | payer OTHER ==
[2019-07-27 15:23] VITALS: BMI 21.6
--- NOTE | 2019-07-27 17:59 | HP ---
"CIWA Score Nausea/Vomitin-No Nausea/No Vomiting Muscle Tremors: None Anxiety: 0-No Anxiety, at Ease Agitation: 0-Normal Activity Paroxysmal Sweats: 2 Orientation: 4Disoriented Place/Person Tacttile Disturbances: 0-None Auditory Disturbances: 0-None Visual Disturbances: 2-Mild Sensitivity Headache: 2-Mild CIWA-Ar Total Score: 10 - Admission Criteria OASAS Guidelines: Admission for Medically Managed Detox: Requires at least one of the followin. CIWA greater than 12 2. Seizures within the past 24 hours 3. Delirium tremens within the past 24 hours 4. Hallucinations within the past 24 hours 5. Acute intervention needed for co occurring medical disorder 6. Acute intervention needed for co occurring psychiatric disorder 7. Severe withdrawal that cannot be handled at a lower level of care (continued vomiting, continued diarrhea, abnormal vital signs) requiring intravenous medication and/or fluids 8. Admitting History and Physical - Smoking History Smoking history: Current some day smoker Have you smoked in the past 12 months: Yes Aproximately how many cigarettes per day: 2 - Alcohol/Substance Use Hx Alcohol Use: Yes Admission ROS S - HPI Allergies/Adverse Reactions: Allergies Allergy/AdvReac Type Severity Reaction Status Date / Time Penicillins Allergy Verified 07/27/19 16:21 History of Present Illness: pt here requesting detox from etoh use , reports 1.5 l vodka/day since 1 yr ago , prior to which he was not drinking , relapsed after d/c from this facility , currently intoxicated FLORENCIA 0.116 . Pt is poor historian 2/2 intoxication , drowsy , falls asleep frequently during interview, awakened by verbal stimuli. ETOH first age of use 13 . utox + cocaine , reports use 1-2 bags not daily tobacco : occasional pmhx / pshx : umbil hernia , chronic LBP . Search Terms: sirena segundo, 1970 Search Date: 07/27/2019 06:01:25 PM This report was requested by: Agnieszka Mcculloguh | Reference #: [id number] There are no results for the search terms that you entered. Exam Limitations: Clinical Condition, Intoxication - Ebola screening Have you traveled outside of the country in the last 21 days: No Have you had contact with anyone from an Ebola affected area: No Do you have a fever: No - Review of Systems Constitutional: See HPI EENT: reports: See HPI Respiratory: reports: No Symptoms reported Cardiac: reports: No Symptoms Reported GI: reports: See HPI, Diarrhea : reports: No Symptoms Reported Musculoskeletal: reports: See HPI Integumentary: reports: No Symptoms Reported Neuro: reports: See HPI, Headache Endocrine: reports: No Symptoms Reported Psychiatric: reports: Disorientated, other (intoxicated) Patient History - Patient Medical History Hx Anemia: No Hx Asthma: Yes Hx Chronic Obstructive Pulmonary Disease (COPD): No Hx Cancer: No Hx Cardiac Disorders: No Hx Congestive Heart Failure: No Hx Hypertension: No Hx Hypercholesterolemia: No Hx Pacemaker: No HX Cerebrovascular Accident: No Hx Seizures: Yes Hx Dementia: No Hx Diabetes: Yes Hx Gastrointestinal Disorders: Yes Hx Liver Disease: No Hx Genitourinary Disorders: No Hx Sexually Transmitted Disorders: No Hx Renal Disease (ESRD): No Hx Thyroid Disease: No Hx Human Immunodeficiency Virus (HIV): No Hx Hepatitis C: Yes (TX'ED) Hx Depression: Yes Hx Suicide Attempt: No Hx Bipolar Disorder: No Hx Schizophrenia: No - Patient Surgical History Past Surgical History: Yes Hx Neurologic Surgery: No Hx Cataract Extraction: Yes (2010) Hx Cardiac Surgery: No Hx Lung Surgery: No Hx Breast Surgery: No Hx Breast Biopsy: No Hx Abdominal Surgery: No Hx Appendectomy: No Hx Cholecystectomy: No Hx Genitourinary Surgery: No Hx Orthopedic Surgery: No Other Surgical History: ABD HERNIA REPAIR Anesthesia Reaction: No - PPD History Date: 02/21/19 Results: 0MM - Smoking Cessation Smoking history: Current some day smoker Have you smoked in the past 12 months: Yes Aproximately how many cigarettes per day: 2 Cigars Per Day: 0 Hx Chewing Tobacco Use: No Initiated information on smoking cessation: No - Substances abused Alcohol Substance route: Oral Frequency: Daily Amount used: 1 LITER VODKA Age of first use: 11 Date of last use: 07/26/19 Cocaine Substance route: Inhalation Frequency: Daily Amount used: 2 bags Age of first use: 16 Date of last use: 07/26/19 Admission Physical Exam BHS - Vital Signs Vital Signs: Vital Signs - 24 hr 07/27/19 15:19 Temperature 98.4 F Pulse Rate 93 H Respiratory 18 Rate Blood Pressure 118/70 - Physical General Appearance: Yes: Mild Distress, Alcohol on Breath, Intoxicated HEENTM: Yes: Hearing grossly Normal, Normocephalic, Normal Voice Respiratory: Yes: Chest Non-Tender, Lungs Clear, Normal Breath Sounds, No Respiratory Distress, No Accessory Muscle Use Neck: Yes: No masses,lesions,Nodules, Trachea in good position Cardiology: Yes: Regular Rhythm, Regular Rate, S1, S2, Tachycardia Abdominal: Yes: Non Tender, Soft Musculoskeletal: Yes: Gait Steady Extremities: Yes: Normal Range of Motion, Non-Tender Neurological: Yes: Disoriented, Depressed Affect, Other (intoxicated, falls asleep frequently , awakened by verbal stimuli.) - Diagnostic (1) Alcohol intoxication Current Visit: Yes Status: Acute Qualifiers: Complication of substance-induced condition: uncomplicated Qualified Code(s ): F10.920 - Alcohol use, unspecified with intoxication, uncomplicated (2) Cocaine abuse, episodic use Current Visit: Yes Status: Chronic Breathalyzer - Breathalyzer Breathalyzer: 0.116 Urine Drug Screen - Test Device Lot number: [id number] Expiration date: 03/31/21 - Control Is test valid?: Yes - Results Drug screen NEGATIVE: No Urine drug screen results: GRACIE-Cocaine, BZO-Benzodiazepines Inpatient Rehab Admission - Rehab Decision to Admit Inpatient rehab admission?: No"
[2019-07-27] MEDS ORDERED: ACETAMINOPHEN 325 MG TABLET (FP) PO PRN ×2 (18:09)
[2019-07-27] MEDS ORDERED: MENTHOL/PHENOL 1 EACH UD MM PRN (18:09)
[2019-07-27] MEDS ORDERED: MAG HYDROX/AL HYDROX/SIMETH 30 ML UNIT-DOSE CUP PO PRN (18:09)
[2019-07-27] MEDS ORDERED: METHOCARBAMOL 500 MG TABLET PO PRN (18:09)
[2019-07-27] MEDS ORDERED: MELATONIN 5 MG TABLETS PO PRN (18:09)
[2019-07-27] MEDS ORDERED: hydrOXYzine PAMOATE 25 MG CAPSULE (FP) PO PRN (18:09)
[2019-07-27] MEDS ORDERED: IBUPROFEN 400 MG TABLET (FP) PO PRN (18:09)
[2019-07-27] MEDS ORDERED: MAGNESIUM HYDROX 2400MG/30ML ORAL SUSPENSION 30 ML CUP PO PRN (18:09)
[2019-07-27] MEDS ORDERED: MAGNESIUM CITRATE 300 ML BOTTLE PO PRN (18:09)
[2019-07-27] MEDS ORDERED: BISMUTH SUBSALICYLATE 524 MG/30 ML UD PO PRN (18:09)
[2019-07-27] MEDS ORDERED: diazePAM 5 MG TABLET PO PRN (18:10)
[2019-07-27] MEDS: diazePAM 5 MG TABLET PO SCH (23:39)
[2019-07-27] MEDS: THIAMINE HCL 100 MG TABLET (FP) PO SCH (23:39)
[2019-07-28] MEDS: diazePAM 5 MG TABLET PO SCH ×3 (06:02→22:28)
--- NOTE | 2019-07-28 10:07 | PN ---
S CIWA - CIWA Score Nausea/Vomitin-Mild Nausea/No Vomiting Muscle Tremors: 2 Anxiety: 2 Agitation: 2 Paroxysmal Sweats: No Perspiration Orientation: 0-Oriented Tacttile Disturbances: 1-Very Mild Itch/Numbness Auditory Disturbances: 0-None Visual Disturbances: 0-None Headache: 2-Mild CIWA-Ar Total Score: 10 BHS Progress Note (SOAP) Subjective: alert,irritable,anxious,interrupted sleep Objective: 07/28/19 10:05 Vital Signs Temperature 98.3 F 07/28/19 09:28 Pulse Rate 66 07/28/19 09:28 Respiratory Rate 18 07/28/19 09:28 Blood Pressure 101/61 07/28/19 09:28 O2 Sat by Pulse Oximetry (%) 07/28/19 10:06 labs pending Assessment: 07/28/19 10:06 withdrawal symptom Plan: continue detox valium regimen
[2019-07-28 10:13] LABS: ALBUMIN 3.2 g/dl (3.4-5.0); BILIRUBIN,TOTAL 0.8 mg/dL (0.2-1); BLOOD UREA NITROGEN 9.3 mg/dL (7-18); CALCIUM 8.4 mg/dL (8.5-10.1); CREATININE 0.7 mg/dL (0.55-1.3); POTASSIUM 4.4 mmol/L (3.5-5.1); TOT PROT 6.1 g/dl (6.4-8.2)
[2019-07-28] MEDS: PRENATAL VITAMINS W/ FOLIC ACID TABLET (FP) PO SCH (10:30)
[2019-07-28 10:33] LABS: HEMATOCRIT 44.9 % (35.4-49); MCH 32.7 pg (25.7-33.7); MCHC 33.4 g/dl (32.0-35.9); MEAN CELL VOLUME 98.1 fl (80-96); MEAN PLT VOLUME 9.9 fl (7.5-11.1); PLATELET COUNT 231 K/MM3 (134-434); RBC 4.58 M/mm3 (4.00-5.60); RDW 13.6 % (11.9-15.9); WHITE BLOOD COUNT 5.1 K/mm3 (4.0-10.0)
[2019-07-28] MEDS: THIAMINE HCL 100 MG TABLET (FP) PO SCH (22:28)
[2019-07-29] MEDS: diazePAM 5 MG TABLET PO SCH ×2 (06:08→17:05)
[2019-07-29] MEDS: PRENATAL VITAMINS W/ FOLIC ACID TABLET (FP) PO SCH (10:22)
--- NOTE | 2019-07-29 13:00 | PN ---
S CIWA - CIWA Score Nausea/Vomitin Muscle Tremors: 1-None Visible, but Clubb Anxiety: 1-Mildly Anxious Agitation: 0-Normal Activity Paroxysmal Sweats: 2 Orientation: 0-Oriented Tacttile Disturbances: 1-Very Mild Itch/Numbness Auditory Disturbances: 0-None Visual Disturbances: 0-None Headache: 0-None Present CIWA-Ar Total Score: 7 BHS Progress Note (SOAP) Subjective: interrupted sleep, sweats, diarrhea Objective: 07/29/19 12:58 Vital Signs Temperature 97.9 F 07/29/19 09:44 Pulse Rate 71 07/29/19 09:44 Respiratory Rate 18 07/29/19 09:44 Blood Pressure 115/67 07/29/19 09:44 O2 Sat by Pulse Oximetry (%) Laboratory Tests 07/28/19 07/28/19 07/28/19 07:00 07:00 07:00 WBC 5.1 RBC 4.58 Hgb 15.0 Hct 44.9 MCV 98.1 H MCH 32.7 MCHC 33.4 RDW 13.6 D Plt Count 231 D MPV 9.9 Sodium 142 Potassium 4.4 Chloride 107 Carbon Dioxide 29 Anion Gap 6 L BUN 9.3 Creatinine 0.7 Est GFR (CKD-EPI)AfAm 129.34 Est GFR (CKD-EPI)NonAf 111.59 Random Glucose 101 Calcium 8.4 L Total Bilirubin 0.8 AST 30 ALT 26 Alkaline Phosphatase 55 Total Protein 6.1 L Albumin 3.2 L RPR Titer Nonreactive pt aox3 in nad ambulating Assessment: 07/29/19 12:58 cont. withdrawal sx Plan: cont. detox increase fluids
[2019-07-29] MEDS ORDERED: P-EPHED 60MG/TRIPROLIDI 2.5MG TABLET PO PRN (17:42)
--- NOTE | 2019-07-29 17:46 | PN ---
BHS Progress Note Note: pt w/ c/o nasal congestion Vital Signs - 24 hr 07/28/19 07/29/19 07/29/19 20:23 00:30 03:30 Temperature 98.4 F Pulse Rate 78 Respiratory 18 18 18 Rate Blood Pressure 121/80 07/29/19 07/29/19 07/29/19 06:07 09:44 13:55 Temperature 97.7 F 97.9 F 98.2 F Pulse Rate 60 71 80 Respiratory 16 18 18 Rate Blood Pressure 105/61 115/67 108/68 07/29/19 17:13 Temperature 97.9 F Pulse Rate 72 Respiratory 18 Rate Blood Pressure 121/77 Actifed ordered
[2019-07-29] MEDS: THIAMINE HCL 100 MG TABLET (FP) PO SCH (21:29)
[2019-07-30] MEDS ORDERED: diazePAM 5 MG TABLET PO ONE (06:00)
--- NOTE | 2019-07-30 09:15 | DS ---
[facility] Detox Discharge Summary Admission Date: 07/27/19 Discharge Date: 07/30/19 - History Present History: Alcohol Dependence, Cocaine Dependence - Physical Exam Results Vital Signs: Vital Signs Temperature 97.5 F L 07/30/19 06:00 Pulse Rate 65 07/30/19 06:00 Respiratory Rate 16 07/30/19 06:00 Blood Pressure 94/53 L 07/30/19 06:00 O2 Sat by Pulse Oximetry (%) Pertinent Admission Physical Exam Findings: pt arrived in withdrawals Vital Signs Temperature 97.5 F L 07/30/19 06:00 Pulse Rate 65 07/30/19 06:00 Respiratory Rate 16 07/30/19 06:00 Blood Pressure 94/53 L 07/30/19 06:00 O2 Sat by Pulse Oximetry (%) Laboratory Tests 07/28/19 07/28/19 07/28/19 07:00 07:00 07:00 WBC 5.1 RBC 4.58 Hgb 15.0 Hct 44.9 MCV 98.1 H MCH 32.7 MCHC 33.4 RDW 13.6 D Plt Count 231 D MPV 9.9 Sodium 142 Potassium 4.4 Chloride 107 Carbon Dioxide 29 Anion Gap 6 L BUN 9.3 Creatinine 0.7 Est GFR (CKD-EPI)AfAm 129.34 Est GFR (CKD-EPI)NonAf 111.59 Random Glucose 101 Calcium 8.4 L Total Bilirubin 0.8 AST 30 ALT 26 Alkaline Phosphatase 55 Total Protein 6.1 L Albumin 3.2 L RPR Titer Nonreactive pt aaox3 ambulating no acute distress - Treatment Hospital Course: Detox Protocol Followed, Detoxed Safely, Responded well, Discharged Condition Good, Rehab Referral Accepted Patient has Accepted a Rehab Referral to: pt referred to inpatient rehab [facility] - Medication Discharge Medications: Ambulatory Orders NK [No Known Home Medication] 07/27/19 - Diagnosis (1) Alcohol intoxication Current Visit: Yes Status: Acute Qualifiers: Complication of substance-induced condition: uncomplicated Qualified Code(s ): F10.920 - Alcohol use, unspecified with intoxication, uncomplicated (2) Cocaine abuse, episodic use Current Visit: Yes Status: Chronic (3) Abrasion, right knee, initial encounter Current Visit: No Status: Acute Qualifiers: Encounter type: initial encounter Qualified Code(s): S80.211A - Abrasion, right knee, initial encounter (4) Drug-induced mood disorder Current Visit: No Status: Acute (5) Hypertension Current Visit: No Status: Acute Qualifiers: Hypertension type: essential hypertension Qualified Code(s): I10 - Essential (primary) hypertension (6) Left knee pain Current Visit: No Status: Acute (7) Swelling of right knee joint Current Visit: No Status: Acute (8) Type II diabetes mellitus Current Visit: No Status: Acute Qualifiers: Diabetes mellitus technician terminal and repeater insulin use: without retirement use Diabetes mellitus complication status: without complication Qualified Code(s): E11.9 - Type 2 diabetes mellitus without complications (9) Weight loss Current Visit: No Status: Acute (10) Alcohol dependence with uncomplicated withdrawal Current Visit: Yes Status: Chronic (11) Hepatitis C antibody test positive Current Visit: No Status: Chronic (12) Knee effusion, right Current Visit: No Status: Chronic (13) Nicotine dependence Current Visit: No Status: Chronic Qualifiers: Nicotine product type: cigarettes Substance use status: uncomplicated Qualified Code(s): F17.210 - Nicotine dependence, cigarettes, uncomplicated (14) Weakness of right leg Current Visit: No Status: Chronic - AMA Did Patient Leave Against Medical Advice: No
[2019-07-30 09:50] VITALS: BP 101/50; PULSE 70; TEMP 98.1
[2019-07-30] MEDS: PRENATAL VITAMINS W/ FOLIC ACID TABLET (FP) PO SCH (10:19)
== END 2019-07-30 11:29 | disposition other institution (70) | DRG 774 ==
LOC: YASAS 12:13 → Y6N 18:58
PROVIDERS: ADMIT Allergy & Immunology; ATTEND Allergy & Immunology
PROC: HZ2ZZZZ Detoxification Services for Substance Abuse Treatment (ICD-10-PCS; principal; 2019-07-27)
DX: F10.230 Alcohol dependence with withdrawal, uncomplicated (principal); F10.220 Alcohol dependence with intoxication, uncomplicated; F14.20 Cocaine dependence, uncomplicated; F17.210 Nicotine dependence, cigarettes, uncomplicated; F19.24 Other psychoactive substance dependence with psychoactive substance-induced mood disorder; F32.9 Major depressive disorder, single episode, unspecified; J45.909 Unspecified asthma, uncomplicated; E11.9 Type 2 diabetes mellitus without complications; Z79.84 Long term (current) use of oral hypoglycemic drugs; I10 Essential (primary) hypertension; B18.2 Chronic viral hepatitis C; M25.461 Effusion, right knee; M25.562 Pain in left knee; M62.81 Muscle weakness (generalized); M54.5 Low back pain; G89.29 Other chronic pain; R63.4 Abnormal weight loss; Z68.21 Body mass index [BMI] 21.0-21.9, adult; Z88.8 Allergy status to other drugs, medicaments and biological substances
CPT/HCPCS: 36415; 80053; 85027; 86593

== ENCOUNTER 2019-07-30 11:32 | Inpatient (IN) | payer OTHER ==
[2019-07-30] MEDS ORDERED: LOPERAMIDE HCL 2 MG CAPSULE PO PRN (12:11)
[2019-07-30] MEDS ORDERED: IBUPROFEN 400 MG TABLET (FP) PO PRN (12:11)
[2019-07-30] MEDS ORDERED: MAGNESIUM HYDROX 2400MG/30ML ORAL SUSPENSION 30 ML CUP PO PRN (12:11)
[2019-07-30] MEDS ORDERED: MENTHOL/PHENOL 1 EACH UD MM PRN (12:11)
[2019-07-30] MEDS ORDERED: P-EPHED 60MG/TRIPROLIDI 2.5MG TABLET PO PRN (12:11)
[2019-07-30] MEDS ORDERED: MAG HYDROX/AL HYDROX/SIMETH 30 ML UNIT-DOSE CUP PO PRN (12:11)
[2019-07-30] MEDS ORDERED: hydrOXYzine PAMOATE 50 MG CAPSULE (FP) PO PRN (12:11)
[2019-07-30] MEDS ORDERED: NICOTINE POLACRILEX 4 MG GUM BUC PRN (12:11)
[2019-07-30] MEDS ORDERED: guaiFENesin 200 MG/10 ML 10 ML UNIT-DOSE CUPS PO PRN (12:11)
[2019-07-30] MEDS ORDERED: ACETAMINOPHEN 325 MG TABLET (FP) PO PRN (12:11)
[2019-07-30] MEDS ORDERED: MAGNESIUM CITRATE 300 ML BOTTLE PO PRN (12:11)
--- NOTE | 2019-07-30 12:11 | HP ---
[facility] Rehab Assess/Revision - Admission History Admitted to Rehab from: [address] - Vital signs Vital Signs: Vital Signs Period Temp Pulse Resp BP Sys/Smith Pulse Ox Last 24 Hr 98.1 F 76 18 114/69 - Findings Detox History & Physical reviewed: Yes Concur with findings: Yes Inpatient Rehab Admission - Rehab Decision to Admit Inpatient rehab admission?: Yes - Initial Determination Are CD services needed?: Yes Free of communicable disease: Yes Not in need of hospitalization: Yes - Rehab Admission Criteria Previous failed treatment: Yes Poor recovery environment: Yes Comorbidities: Yes Lacks judgement: Yes Patient is meeting Inpatient Rehab admission criteria:: Yes
--- NOTE | 2019-07-30 14:33 | PN ---
BHS Progress Note (SOAP) Subjective: Patient transferred from Detox. PMHx: pt here because etoh use, reports 1.5 l vodka/day since 1 yr ago , prior to which he was not drinking, relapsed after d/c from this facility, ETOH first age of use 13 . utox + cocaine , reports use 1-2 bags not daily tobacco : occasional pmhx / pshx : umbil hernia , chronic LBP . Objective: P/E; General:no apparent distress, resting comfortably in bed HEENTM: Normocephalic Neck: supple Lungs: clear Heart: s1 s2 Skin: Bottoms of feet with callous, scaly skin. 07/30/19 14:35 07/30/19 14:37 07/30/19 14:38 Vital Signs Period Temp Pulse Resp BP Sys/Smith Pulse Ox Last 24 Hr 98.1 F 76 18 114/69 Assessment: Admitted to Rehab after completing detox Bilateral callous, 07/30/19 14:36 07/30/19 14:37 Plan: Confirmed transfer orders. No home meds need to be ordered. Continue rehab. Will order warm soaks and cream for feet.
[2019-07-30] MEDS ORDERED: MINERAL OIL/PETROLAT/WATER TOPICAL CREAM 113 GM JAR TP PRN (14:39)
[2019-07-30] MEDS: THIAMINE HCL 100 MG TABLET (FP) PO SCH (21:28)
[2019-07-31] MEDS: NICOTINE 21 MG/24 HOURS TOPICAL PATCH TD SCH (09:48)
[2019-07-31] MEDS: PRENATAL VITAMINS W/ FOLIC ACID TABLET (FP) PO SCH (09:48)
[2019-07-31] MEDS: THIAMINE HCL 100 MG TABLET (FP) PO SCH (21:11)
[2019-07-31] MEDS: MELATONIN 5 MG TABLETS PO PRN (21:11)
[2019-08-01] MEDS: PRENATAL VITAMINS W/ FOLIC ACID TABLET (FP) PO SCH (09:49)
[2019-08-01] MEDS: NICOTINE 21 MG/24 HOURS TOPICAL PATCH TD SCH (09:49)
[2019-08-01] MEDS: THIAMINE HCL 100 MG TABLET (FP) PO SCH (21:35)
[2019-08-01] MEDS: MELATONIN 5 MG TABLETS PO PRN (21:35)
[2019-08-02] MEDS: NICOTINE 21 MG/24 HOURS TOPICAL PATCH TD SCH (10:10)
[2019-08-02] MEDS: PRENATAL VITAMINS W/ FOLIC ACID TABLET (FP) PO SCH (10:10)
[2019-08-02] MEDS: THIAMINE HCL 100 MG TABLET (FP) PO SCH (21:32)
[2019-08-03] MEDS: PRENATAL VITAMINS W/ FOLIC ACID TABLET (FP) PO SCH (10:00)
[2019-08-03] MEDS: NICOTINE 21 MG/24 HOURS TOPICAL PATCH TD SCH (10:01)
--- NOTE | 2019-08-03 10:13 | PN ---
BHS Progress Note Note: Pt here for c/o of cough at night. Says Ok during the day, no sore throat PE Vital Signs - 24 hr 08/03/19 08/03/19 08/03/19 00:30 03:30 06:45 Temperature 97.7 F Pulse Rate 71 Respiratory 18 18 18 Rate Blood Pressure 106/80 no redness swelling of back of throat a/p-Dry cough-suggested to pt to drink plenty of fluids
[2019-08-03] MEDS: THIAMINE HCL 100 MG TABLET (FP) PO SCH (21:09)
[2019-08-03] MEDS: MELATONIN 5 MG TABLETS PO PRN (21:09)
[2019-08-04] MEDS: PRENATAL VITAMINS W/ FOLIC ACID TABLET (FP) PO SCH (09:39)
[2019-08-04] MEDS: NICOTINE 21 MG/24 HOURS TOPICAL PATCH TD SCH (09:40)
[2019-08-04] MEDS: THIAMINE HCL 100 MG TABLET (FP) PO SCH (21:16)
[2019-08-04] MEDS: MELATONIN 5 MG TABLETS PO PRN (21:16)
[2019-08-05] MEDS: NICOTINE 21 MG/24 HOURS TOPICAL PATCH TD SCH (09:53)
[2019-08-05] MEDS: PRENATAL VITAMINS W/ FOLIC ACID TABLET (FP) PO SCH (09:53)
--- NOTE | 2019-08-05 11:45 | PN ---
BHS Progress Note Note: Pt states he took melatonin and did not like the side effects. d/w pt that as it is a prn med- he can take it if he needs.
[2019-08-05] MEDS: THIAMINE HCL 100 MG TABLET (FP) PO SCH (21:40)
[2019-08-06] MEDS: PRENATAL VITAMINS W/ FOLIC ACID TABLET (FP) PO SCH (09:50)
[2019-08-06] MEDS: NICOTINE 21 MG/24 HOURS TOPICAL PATCH TD SCH (09:51)
[2019-08-06] MEDS: THIAMINE HCL 100 MG TABLET (FP) PO SCH (21:58)
[2019-08-07] MEDS: PRENATAL VITAMINS W/ FOLIC ACID TABLET (FP) PO SCH (10:02)
[2019-08-07] MEDS: NICOTINE 21 MG/24 HOURS TOPICAL PATCH TD SCH (10:02)
[2019-08-07] MEDS: THIAMINE HCL 100 MG TABLET (FP) PO SCH (21:44)
[2019-08-08] MEDS: PRENATAL VITAMINS W/ FOLIC ACID TABLET (FP) PO SCH (09:42)
[2019-08-08] MEDS: NICOTINE 21 MG/24 HOURS TOPICAL PATCH TD SCH (09:42)
[2019-08-08] MEDS: THIAMINE HCL 100 MG TABLET (FP) PO SCH (22:06)
[2019-08-09] MEDS: PRENATAL VITAMINS W/ FOLIC ACID TABLET (FP) PO SCH (09:29)
[2019-08-09] MEDS: NICOTINE 21 MG/24 HOURS TOPICAL PATCH TD SCH (09:29)
[2019-08-09] MEDS: THIAMINE HCL 100 MG TABLET (FP) PO SCH (21:40)
[2019-08-10] MEDS: PRENATAL VITAMINS W/ FOLIC ACID TABLET (FP) PO SCH (09:54)
[2019-08-10] MEDS: NICOTINE 21 MG/24 HOURS TOPICAL PATCH TD SCH (09:55)
[2019-08-10] MEDS: THIAMINE HCL 100 MG TABLET (FP) PO SCH (21:51)
[2019-08-11] MEDS: PRENATAL VITAMINS W/ FOLIC ACID TABLET (FP) PO SCH (09:32)
[2019-08-11] MEDS: NICOTINE 21 MG/24 HOURS TOPICAL PATCH TD SCH (09:33)
[2019-08-11] MEDS: THIAMINE HCL 100 MG TABLET (FP) PO SCH (21:54)
[2019-08-12] MEDS: PRENATAL VITAMINS W/ FOLIC ACID TABLET (FP) PO SCH (10:15)
[2019-08-12] MEDS: NICOTINE 21 MG/24 HOURS TOPICAL PATCH TD SCH (10:15)
--- NOTE | 2019-08-12 13:58 | DS ---
[facility] Rehab Discharge Summary - [facility] Rehab Discharge Summary Admission Date: 07/30/19 Discharge Date: 08/12/19 - History Present History: Alcohol dependence Pertinent Past History: pt reports 1.5 l vodka/day since 1 yr ago; prior to which he was not drinking , relapsed after d/c from this facility. ETOH first age of use 13 . utox + cocaine , reports use 1-2 bags not daily tobacco : occasional pmhx / pshx : umbil hernia , chronic LBP . - Discharge Physical Exam Vital Signs: Vital Signs Temperature 97.9 F 08/12/19 07:01 Pulse Rate 75 08/12/19 07:01 Respiratory Rate 18 08/12/19 07:01 Blood Pressure 91/75 08/12/19 07:01 O2 Sat by Pulse Oximetry (%) Pertinent Admission Physical Exam Findings: Physical General Appearance: no apparent distress HEENTM: Normocephalic, Respiratory: Lungs Clear, Neck: supple, Trachea in good position Cardiology: S1, S2, Tachycardia Abdominal: +BS, Non Tender, Soft Musculoskeletal: Gait Steady, Normal Range of Motion Neurological: CN 2-12 intact - Treatment Discharge Condition: Outpatient referral accepted (Medically stable for discharge. Patient will go to the [facility].) Hospital Course: Patient attended groups, had 1;1 meetings with his counselor, was adherent to the medication regimen and treatment plan. He had no significant medical problems while in rehab. - Medication Discharge Medications: Ambulatory Orders NK [No Known Home Medication] 07/27/19 - Medication-Assisted Treatment (MAT) Medication-Assisted Treatment (MAT): No - Discharge Instructions Diet, activity, other medical instructions: Diet: As tolerated Activity: As tolerated Other medical instructions: Please follow up with aftercare referral and make an appointment with your medical provider within 2 weeks of discharge. - Diagnosis (1) Alcohol intoxication Current Visit: No Status: Chronic Qualifiers: Complication of substance-induced condition: uncomplicated Qualified Code(s ): F10.920 - Alcohol use, unspecified with intoxication, uncomplicated - Follow-up Referral Minutes to complete discharge: 20 - AMA Did Patient Leave Against Medical Advice: No
[2019-08-12] MEDS: THIAMINE HCL 100 MG TABLET (FP) PO SCH (22:25)
[2019-08-13 07:07] VITALS: BP 115/74; PULSE 70; TEMP 97.3
[2019-08-13] MEDS: PRENATAL VITAMINS W/ FOLIC ACID TABLET (FP) PO SCH (09:22)
[2019-08-13] MEDS: NICOTINE 21 MG/24 HOURS TOPICAL PATCH TD SCH (09:23)
== END 2019-08-13 09:40 | disposition home or self-care (01) | DRG 772 ==
LOC: YASAS 11:32 → Y3W 11:33
PROVIDERS: ADMIT Neuromusculoskeletal Medicine & OMM; ATTEND Neuromusculoskeletal Medicine & OMM
PROC: HZ42ZZZ Group Counseling for Substance Abuse Treatment, Cognitive-Behavioral (ICD-10-PCS; principal; 2019-07-30)
DX: F10.20 Alcohol dependence, uncomplicated (principal); F17.210 Nicotine dependence, cigarettes, uncomplicated; E11.9 Type 2 diabetes mellitus without complications; J45.909 Unspecified asthma, uncomplicated; R05 Cough; L84 Corns and callosities; Z86.69 Personal history of other diseases of the nervous system and sense organs; Z59.0 Homelessness
CPT/HCPCS: 82962